=== PATIENT | male | born 1990 | race Caucasian/White ===

== ENCOUNTER 2017-10-07 14:25 | Inpatient (IN) | payer OTHER ==
[~2017-10-07] VITALS: Ht 182.9 cm; Wt 76.1 kg
[2017-10-07 16:00] VITALS: BP 134/73; PULSE 97; TEMP 37.2; O2SAT 99
[2017-10-07] MEDS ORDERED: KETOROLAC TROMETHAMINE 30 MG/ML VIAL IV STA (16:26)
[2017-10-07] MEDS ORDERED: PIPERACILL/TAZOBAC IV 4.5 GM in DEXTROSE 5% 100ML 100 ML IV SCH (16:45)
[2017-10-07] MEDS ORDERED: ONDANSETRON INJ 2 MG/ML 2 ML VIAL IV PRN (17:00)
[2017-10-07] MEDS ORDERED: MAGNESIUM HYDROXIDE SUSP 30 ML UDC PO PRN (17:00)
[2017-10-07 17:06] VITALS: BMI 22.0
[2017-10-07] MEDS: PATIENT'S HEIGHT AND/OR WEIGHT NEEDED SCH ×2 (17:06→17:07)
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
[2017-10-07] MEDS ORDERED: VANCOMYCIN INJ 1,750 MG in SODIUM CHLORIDE 0.9% 500ML 500 ML IV SCH (17:45)
[2017-10-07] MEDS ORDERED: PIPERACILL/TAZOBAC IV 4.5 GM in DEXTROSE 5% 100ML IV ONE (17:45)
[2017-10-07 18:05] VITALS: BP 134/73; PULSE 97; TEMP 37.2; BMI 22.0
[2017-10-07] MEDS: SODIUM CHLORIDE 0.9% 1000ML 1,000 ML IV SCH (18:54)
[2017-10-07] MEDS ORDERED: VANCOMYCIN CONSULT ACTIVE PRN (20:15)
[2017-10-07] MEDS ORDERED: PIPERACILL/TAZOBAC CONSULT ACTIVE PRN (20:15)
[2017-10-07 21:07] VITALS: BP 103/57; PULSE 85; TEMP 36.7; O2SAT 99
[2017-10-07] MEDS: ACETAMINOPHEN 325 MG TAB PO PRN (21:20)
[2017-10-07 23:18] VITALS: BP 103/53; PULSE 74; TEMP 37.1; O2SAT 93
[2017-10-07] MEDS: PIPERACILL/TAZOBAC IV 3.375 GM in DEXTROSE 5% 100ML IV SCH (23:30)
[2017-10-07] MEDS: NICOTINE 21 MG/24 HR TDSY TD PRN (23:34)
[2017-10-08 03:39] VITALS: BP 112/51; PULSE 66; TEMP 36.9; O2SAT 98
[2017-10-08] MEDS: ACETAMINOPHEN 325 MG TAB PO PRN ×3 (03:50→15:44)
[2017-10-08] MEDS ORDERED: VANCOMYCIN INJ 1,000 MG in SODIUM CHLORIDE 0.9% 250ML 250 ML IV SCH (04:00)
[2017-10-08 06:08] LABS: HEMATOCRIT 33.7 % (42-52); MEAN CELL VOLUME 89.2 fL (80-100); MEAN CORPUSCULAR HEMOGLOBIN 29.9 pg (25-34); MEAN CORPUSCULAR HGB CONC 33.5 g/dl (32-36); MEAN PLATELET VOLUME 9.1 fL (7.4-10.4); PLATELET COUNT 210 K/uL (130-400); RED BLOOD COUNT 3.78 M/uL (4.7-6.1); WHITE BLOOD COUNT 10.04 K/uL (4.8-10.8)
[2017-10-08 06:41] LABS: CALCIUM 8.3 mg/dl (8.5-10.1); CREATININE 0.93 mg/dl (0.60-1.40); POTASSIUM 3.7 mmol/L (3.5-5.1)
[2017-10-08 07:15] VITALS: BP 103/42; PULSE 61; TEMP 36.6; O2SAT 98
[2017-10-08] MEDS: METHIMAZOLE 5 MG TAB PO SCH (08:24)
[2017-10-08] MEDS: PIPERACILL/TAZOBAC IV 3.375 GM in DEXTROSE 5% 100ML IV SCH (08:24)
[2017-10-08] MEDS: SODIUM CHLORIDE 0.9% 1000ML 1,000 ML IV SCH ×2 (08:25→14:30)
[2017-10-08 08:58] VITALS: BP 103/42; PULSE 61; TEMP 36.6; O2SAT 98
--- NOTE | 2017-10-08 09:35 | ECHOCARDIOGRAM REPORT ---
*NOTICE TO RECEIVING REPUBLICAN AGENCY This information is strictly Confidential and protected under [place] law. [place] law prohibits you from making any further disclosure of this information unless further disclosure is expressly permitted by the written consent of the person to whom it pertains or is authorized by law. A general authorization for the release of medical or other information is not sufficient for this purpose. Hospital accepts no responsibility if the information is made available to any other person, INCLUDING THE PATIENT. Interpretation Summary * Name: CASANDRA CHAVIRA Study Date: 10/08/2017 06:31 AM BP: 112/51 mmHg * Patient Location: C.2E\S\E206\S\1 HR: 64 * : 1990 (M/d/yyyy) Gender: Male Height: 71 in * Age: 27 yrs Ethnicity: CA Weight: 160 lb * Ordering Physician: Demetria Cowart * Referring Physician: Luis Miguel Harris * Performed By: Keo Whittaker RCS * * Reason For Study: Septic Emboli * BSA: 1.9 m2 * -- Conclusions -- * Left ventricular systolic function is normal. * There was some thickening of the mitral valve in certain views. No definite vegetation. * Right ventricular systolic pressure is normal. * No definite vegetations or source of emboli. If the clinical suspicion for endocarditis is high, transesophageal echocardiogram could be considered. Procedure Details * A complete two-dimensional transthoracic echocardiogram was performed (2D, M-mode, Doppler and color flow Doppler). Left Ventricle * The left ventricle is normal in size. * There is normal left ventricular wall thickness. * Ejection Fraction = 65-70%. * Left ventricular systolic function is normal. * Normal diastolic function * The left ventricular wall motion is normal. Right Ventricle * The right ventricle is normal in size and function. Atria * The left atrial size is normal. * Right atrial size is normal. Mitral Valve * The mitral valve anatomy is normal. * There was some thickening of the mitral valve in certain views. No definite vegetation. * There is no mitral regurgitation noted. Tricuspid Valve * The tricuspid valve anatomy is normal. * There is trace tricuspid regurgitation. * Right ventricular systolic pressure is normal. Aortic Valve * The aortic valve is normal in structure and function. * The aortic valve is trileaflet. * No hemodynamically significant valvular aortic stenosis. * There is no significant aortic regurgitation. Great Vessels * The aortic root is normal size. Pericardium/Pleural * There is no pericardial effusion. MMode 2D Measurements and Calculations IVSd 1.0 cm IVSs 1.2 cm LVIDd 4.8 cm LVIDs 2.9 cm LVPWd 0.85 cm LVPWs 1.4 cm IVS/LVPW 1.2 FS 38.9 % EDV(Teich) 108.2 ml ESV(Teich) 33.3 ml EF(Teich) 69.2 % EDV(cubed) 111.5 ml ESV(cubed) 25.4 ml EF(cubed) 77.2 % % IVS thick 16.3 % % LVPW thick 61.5 % LV mass(C)d 158.5 grams LV mass(C)dI 82.6 grams/m\S\2 LV mass(C)s 119.8 grams LV mass(C)sI 62.4 grams/m\S\2 SV(Teich) 74.8 ml SI(Teich) 39.0 ml/m\S\2 SV(cubed) 86.0 ml SI(cubed) 44.8 ml/m\S\2 Ao root diam 3.4 cm Ao root area 9.1 cm\S\2 ACS 1.7 cm LA dimension 3.3 cm asc Aorta Diam 2.9 cm LA/Ao 0.96 EDV(MOD-sp4) 114.2 ml ESV(MOD-sp4) 32.3 ml EF(MOD-sp4) 71.7 % EDV(MOD-sp2) 159.2 ml ESV(MOD-sp2) 48.8 ml EF(MOD-sp2) 69.4 % SV(MOD-sp4) 82.0 ml SI(MOD-sp4) 42.7 ml/m\S\2 SV(MOD-sp2) 110.4 ml SI(MOD-sp2) 57.6 ml/m\S\2 Doppler Measurements and Calculations MV E max mina 106.8 cm/sec MV A max mina 48.5 cm/sec MV E/A 2.2 MV P1/2t max mina 100.5 cm/sec MV P1/2t 96.2 msec MVA(P1/2t) 2.3 cm\S\2 MV dec slope 306.2 cm/sec\S\2 MV dec time 0.25 sec Ao V2 max 141.9 cm/sec Ao max PG 8.1 mmHg Ao max PG (full) 3.0 mmHg LV V1 max PG 5.0 mmHg LV V1 max 112.2 cm/sec PA V2 max 101.4 cm/sec PA max PG 4.1 mmHg TR max mina 247.5 cm/sec
--- NOTE | 2017-10-08 10:19 | Pharmacy Progress Note ---
Pharmacy Abx Initial Consult Date of Service Oct 08, 2017. Pharmacy Dosing Scope Date of Consult: 10/07/17 Consultation requested by: Dr. Mary Ellen Cowart Pharmacy is consulted to initiate IV VANCOMYCIN and ZOSYN therapy, order appropriate labs and adjust drug dose/frequency. Subjective The patient is a 27 year old male admitted on Oct 07, 2017 at 15:45 for recurrent R elbow abscess + R leg ulcer. Patient was transferred here from [facility] due to SOB and concern for septic emboli on CTA. Objective Height (Feet): 5 Height (Inches): 11.00 Weight (Kilograms): 72.400 Vital Signs (Past 12Hrs) Vital Signs Past 12 Hours Date Time Temp Pulse Resp B/P (MAP) Pulse Ox O2 Delivery O2 Flow Rate FiO2 10/08/17 07:15 36.6 61 18 103/42 (62) 98 Room Air 10/08/17 04:00 Room Air 10/08/17 03:39 36.9 66 19 112/51 (71) 98 Room Air 10/07/17 23:59 Room Air 10/07/17 23:18 37.1 74 18 103/53 (70) 93 Room Air Lab Results (24Hrs) Laboratory Tests (24 Hours) Test 10/08/17 05:46 White Blood Count 10.04 K/uL (4.8-10.8) Micro Results No micro has been collected to date Risk Factors for Resistance * History of infection with a multidrug-resistant organism: h/o MRSA per provider's note * Antimicrobial use within the last 90 days: recent Bactrim use for R elbow abscess Assessment & Plan Assessment * 27 year old male prescribed empiric broad-spectrum abx therapy for skin abscess and concern for septic emboli * Sat well on room air, no tachycardia noted, BP stable * Currently afebrile and no leukocytosis noted * Echo draft: "No definite vegetations or source of emboli. If the clinical suspicion for endocarditis is high, transesophageal echocardiogram could be considered" Plan Vancomycin IV * Loading dose: 1750 mg (24.5 mg/kg) x 1 yesterday * 1000mg x 1 given at 0400 today * Maintenance dose: 1250 mg IV (~17 mg/kg) every 10 hours * Goal trough level for possible endocarditis : 15 to 20 mcg/mL * Trough level ordered for 10/09/17 w 4th maintenance dose * p'kinetic estimates: Vd 0.7L/kg, half-life ~7 hours Piperacillin/tazobactam * 4.5 g bolus administered over 30 minutes, then 3.375 g IV extended infusion every 8 hours for CrCl greater than 20 mL/min * Question whether Zosyn required for empiric therapy of endocarditis as patient does not have clear risk factors for pseudomonas. Often Rocephin is used for empiric gram-negative coverage in the setting of endocarditis and provides good cellulitis coverage. Metronidazole could be added to the Rocephin for anaerobic coverage given multiple abscesses. Pharmacy will continue to follow and will adjust dose/frequency as necessary. Thank you.
[2017-10-08] MEDS: NICOTINE 21 MG/24 HR TDSY TD PRN (10:45)
[2017-10-08 11:13] VITALS: BP 98/53; PULSE 69; TEMP 36.9; O2SAT 96
--- NOTE | 2017-10-08 11:14 | Progress Note ---
Progress Note Date of Service Oct 08, 2017. Progress Note ID Consult Dictated #[id number] A/P: 1. MRSA skin abscesses -Continue vanco, can stop zosyn -Check blood cultures, outpt cutlures reportedly negative -Await CTA results -Can d/c airborne precautions from ID standpoint -Suggest surgical consult, will likely require I&D right hip abscess -Will follow, thank you
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
--- NOTE | 2017-10-08 11:26 | INFECT. DISEASE CONSULTATION ---
DATE OF CONSULTATION: 10/08/2017 REQUESTING PHYSICIAN: Dr. Cowart. HISTORY OF PRESENT ILLNESS: This is a 27-year-old gentleman, who was transferred from [facility] for concern of septic emboli. A CAT scan was done at an outside facility. I do not have records of that to review at this time. His history includes multiple skin disease in the last few weeks. He states that it began with one of his right lower extremity, which opened and drained spontaneously. This resolved. He then developed an abscess on his right forearm, elbow area, which has been drained as an outpatient. He reports that cultures grew MRSA. This was done at an outpatient clinic in the [facility]. He was started on Bactrim and took 2 doses. He then developed an abscess on his right hip, which has not opened and drained. He admits to significant tenderness with this. For that reason, he was sent to the ER and underwent blood testing. He had a positive D-dimer and for that reason, a CAT scan was done to rule out pulmonary embolus. There was reportedly no evidence of PE, but suspicion for septic pulmonary emboli and he was subsequently transferred for higher level of care. He was placed on vancomycin and Zosyn in the Emergency Room. He denies any shortness of breath, cough, chest pain, nausea, vomiting or diarrhea. He states he had blood cultures done on an outpatient basis and those are reportedly negative; however, I do not have documentation of this. No blood cultures were obtained here. His white blood cell count is normal at 10. He did have an echocardiogram, which was negative for vegetation. He has been afebrile since admission. He was placed in airborne precaution as well as contact precaution. He has had no recent travel. He has no sick contacts. He has no history of intravenous drug use. An HIV test was ordered and results of this are pending. He denies any sick contacts. He lives with his fiancee and 2 young daughters. None of his family members know the patient himself has had any history of skin abscess or cellulitis in the past. He works as a structures mechanic and states he does have multiple superficial lacerations, but otherwise reports no risk factors for abscess. All remaining review of systems is reviewed and are unremarkable. PAST MEDICAL HISTORY: Significant for Graves' disease, which has not been treated secondary to insurance issues. PAST SURGICAL HISTORY: Unremarkable. FAMILY HISTORY: Unremarkable. SOCIAL HISTORY: Significant for 1 pack per day smoking. He drinks occasionally. He denies any intravenous or other drug use. ALLERGIES: He has no known drug allergies. MEDICATIONS: Include vancomycin, Zosyn, Tylenol, milk of magnesia, Zofran and nicotine patch. PHYSICAL EXAMINATION: VITAL SIGNS: He is afebrile, pulse 61, respiratory rate 18, blood pressure 103/42, and oxygen saturation is 98% on room air. GENERAL: He is awake, alert and oriented x3. He is in no acute distress. HEENT: Mucous membranes are moist. Extraocular muscles are intact. HEART: Regular. There is no murmur. LUNGS: Clear bilaterally. ABDOMEN: Soft. There is no lower extremity edema. SKIN: Without rash. EXTREMITIES: Examination of the right elbow reveals an open abscess with seropurulent drainage on the dressing. There is surrounding warmth, edema and erythema. This is tender to palpation. Examination of the right hip reveals significant abscess with no drainage at this time. There is significant fluctuance, tenderness, warmth and erythema. LABORATORY STUDIES: CBC today reveals a white blood cell count of 10, hemoglobin 11.3, and platelets are 210. Chemistry panel reveals a sodium of 139, potassium 3.7, chloride 105, bicarbonate 27, BUN 16, creatinine 0.9, and glucose is 90. HIV test is negative. There are no cultures to review. There is no imaging to review. Echocardiogram was done earlier this morning and is negative for vegetation. ASSESSMENT AND PLAN: Multiple skin abscesses with reported methicillin-resistant Staphylococcus aureus. He can remain on vancomycin. Blood cultures will be obtained. Zosyn can likely be discontinued. A CT will need to be reviewed, although he does not clinically present though he has septic emboli. Airborne precautions can be discontinued from an infectious disease standpoint. He likely will need surgical evaluation for I&D of his left hip abscess. We will follow along with you. Thank you for this consultation.
--- NOTE | 2017-10-08 13:48 | Medical Student: [facility] ---
Med Student Progress Note Date of Service Oct 08, 2017. Subjective Pt evaluation today including: conversation w/ patient, physical exam, chart review, lab review, review of studies, review of inpatient medication list PO Intake: Good Voiding: no voiding problems Pt is a 25 yo M who presents for septic embolus. He was admitted on 10/07 after being transferred from [facility]. Currently pt is doing well. Only complains of minor lower abdominal pain bilaterally (but L>R) that started 1 day ago. He notes the pain is worst when it moves (rated as "very severe") and he doesn't notice it at all when he is still. Review of Systems Constitutional: + chills, No fever Respiratory: No cough, No sputum, No wheezing, No shortness of breath Cardiac: No chest pain, No palpitations Abdomen: + pain, No nausea, No vomiting, No diarrhea, No constipation Male : No dysuria, No urinary frequency, No incontinence Objective Vital Signs Date Time Temp Pulse Resp B/P (MAP) Pulse Ox O2 Delivery O2 Flow Rate FiO2 10/08/17 08:00 Room Air 10/08/17 07:15 36.6 61 18 103/42 (62) 98 Room Air 10/08/17 04:00 Room Air 10/08/17 03:39 36.9 66 19 112/51 (71) 98 Room Air 10/07/17 23:59 Room Air 10/07/17 23:18 37.1 74 18 103/53 (70) 93 Room Air 10/07/17 21:07 36.7 85 22 103/57 (72) 99 Room Air 10/07/17 18:05 37.2 97 18 134/73 Room Air 93.0 10/07/17 16:00 37.2 97 18 134/73 (93) 99 Room Air Physical Exam General Appearance: WD/WN, no apparent distress Neck: no JVD, trachea midline Respiratory/Chest: chest non-tender, lungs clear, normal breath sounds, no respiratory distress Cardiovascular: regular rate, rhythm, no edema, no gallop, no murmur Abdomen: normal bowel sounds, soft, no organomegaly, + tenderness (LLQ and RLQ) Extremities: no pedal edema, no calf tenderness Neurologic/Psychiatric: alert, normal mood/affect, oriented x 3 Skin: normal color, warm/dry, no rash Laboratory Results Last 24 Hours Test 10/08/17 05:46 White Blood Count 10.04 K/uL Red Blood Count 3.78 M/uL Hemoglobin 11.3 g/dL Hematocrit 33.7 % Mean Corpuscular Volume 89.2 fL Mean Corpuscular Hemoglobin 29.9 pg Mean Corpuscular Hemoglobin Concent 33.5 g/dl RDW Standard Deviation 44.6 fL RDW Coefficient of Variation 13.6 % Platelet Count 210 K/uL Mean Platelet Volume 9.1 fL Sodium Level 139 mmol/L Potassium Level 3.7 mmol/L Chloride Level 105 mmol/L Carbon Dioxide Level 27 mmol/L Anion Gap 6.0 mmol/L Blood Urea Nitrogen 16 mg/dl Creatinine 0.93 mg/dl Est Creatinine Clear Calc Drug Dose 118.4 ml/min Estimated GFR () 128.1 Estimated GFR (Non- 110.5 BUN/Creatinine Ratio 17.0 Random Glucose 90 mg/dl Calcium Level 8.3 mg/dl HIV (1&2) Ab and P24 Ag, 4th Gener NEG Assessment and Plan Assessment and Plan: Pt is a 27 yo who presents with healing abscesses 2/2 septic emboli transferred to [facility] from [facility] on 10/07. Known +MRSA. Imaging done at [facility]: CTA showed multifocal nodular airspace disease in lungs bilaterally - concerning for septic emboli CT abdomen and pelvis showed soft tissue stranding of left psoas muscle without any collection of drainable fluid. HIV test negative 1. Septic Emboli and abscesses a. ID consult -want to continue Vancomycin but can stop Zosyn -Pt can be taken off airborne isolation -Hip abscess will likely require I&D, will consult surgery -Blood cultures collected here b. TTE was normal, consider f/u with ALEJANDRA 2. Graves Disease a. Continue Methimazole 30mg
[2017-10-08] MEDS: VANCOMYCIN INJ 1,250 MG in SODIUM CHLORIDE 0.9% 250ML 250 ML IV SCH ×2 (14:28→23:56)
--- NOTE | 2017-10-08 18:11 | Progress Note ---
Subjective Date of Service: Oct 08, 2017. Subjective this pt is feeling better than past few days, has pain at skin abscess sites, mostly worse at right hip area. pt Related some dental distress about one month ago from a chronically decayed tooth, ? if portal of entry for possible bacteremia Review of Systems Constitutional: No fever, No chills Respiratory: No cough, No shortness of breath, No dyspnea on exertion Cardiac: No chest pain, No edema, No claudication Abdomen: No pain, No nausea, No vomiting, No diarrhea Musculoskeletal: + muscle pain, No joint pain Skin: + problem reported (open areas to right elbow and right hip area) Objective Vital Signs Date Time Temp Pulse Resp B/P (MAP) Pulse Ox O2 Delivery O2 Flow Rate FiO2 10/08/17 07:15 36.6 61 18 103/42 (62) 98 Room Air 10/08/17 04:00 Room Air 10/08/17 03:39 36.9 66 19 112/51 (71) 98 Room Air 10/07/17 23:59 Room Air 10/07/17 23:18 37.1 74 18 103/53 (70) 93 Room Air 10/07/17 21:07 36.7 85 22 103/57 (72) 99 Room Air 10/07/17 18:05 37.2 97 18 134/73 Room Air 93.0 10/07/17 16:00 37.2 97 18 134/73 (93) 99 Room Air Physical Exam General Appearance: + mild distress, + thin Eyes: PERRL, EOMI Neck: supple, thyroid normal Respiratory/Chest: chest non-tender, lungs clear, normal breath sounds Cardiovascular: regular rate, rhythm, no murmur Abdomen: normal bowel sounds, soft, + tenderness Extremities: no pedal edema, no calf tenderness Skin: + pertinent finding (2 quarter sized abscess seen as described) Laboratory Results Last 24 Hours Test 10/08/17 05:46 White Blood Count 10.04 K/uL Red Blood Count 3.78 M/uL Hemoglobin 11.3 g/dL Hematocrit 33.7 % Mean Corpuscular Volume 89.2 fL Mean Corpuscular Hemoglobin 29.9 pg Mean Corpuscular Hemoglobin Concent 33.5 g/dl RDW Standard Deviation 44.6 fL RDW Coefficient of Variation 13.6 % Platelet Count 210 K/uL Mean Platelet Volume 9.1 fL Sodium Level 139 mmol/L Potassium Level 3.7 mmol/L Chloride Level 105 mmol/L Carbon Dioxide Level 27 mmol/L Anion Gap 6.0 mmol/L Blood Urea Nitrogen 16 mg/dl Creatinine 0.93 mg/dl Est Creatinine Clear Calc Drug Dose 118.4 ml/min Estimated GFR () 128.1 Estimated GFR (Non- 110.5 BUN/Creatinine Ratio 17.0 Random Glucose 90 mg/dl Calcium Level 8.3 mg/dl HIV (1&2) Ab and P24 Ag, 4th Gener NEG Assessment and Plan 27 y/o M who was transferred from [facility] on 10/07 for concern for septic emboli, no defined source at this time Septic emboli/skin abscesses: Wound cx done at OSH reportedly + for MRSA Continue with vanco, zosyn dropped by ID, TTE neg will pursue ALEJANDRA CTA and CTAP awaiting radiology input, but initially noted as above Blood cx done at OSH neg of prelim Renal US neg at OSH HIV pending pain control with toradol Graves disease: had been tx prior, but has been untx x9 months due to insurance access States prior dose was methimazole 30mg daily TSH is depressed Tobacco abuse: declines patch, ordered PRN, counselling given for cessation Ambulation for DVT proph CM c/s for assistance with prescriptions and MA
[2017-10-08 19:02] VITALS: BP 102/47; PULSE 105; TEMP 36.7; O2SAT 97
[2017-10-08] MEDS: KETOROLAC TROMETHAMINE 30 MG/ML VIAL IV PRN (21:21)
[2017-10-08 23:40] VITALS: BP 107/39; PULSE 77; TEMP 37; O2SAT 97
[2017-10-09] VITALS (16 sets, daily range): BP systolic 86–144; BP diastolic 37–94; PULSE 58–122; TEMP 36.5–37.2; O2SAT 96–100; Ht 182.9 cm; Wt 76.1 kg
[2017-10-09] MEDS: KETOROLAC TROMETHAMINE 30 MG/ML VIAL IV PRN ×3 (04:18→20:48)
[2017-10-09] MEDS: SODIUM CHLORIDE 0.9% 1000ML 1,000 ML IV SCH (07:33)
[2017-10-09] MEDS ORDERED: BENZOCAIN/TETRACA/BUTAM SPRAY 200 APPLN/20 GM SPRY ONE (08:06)
[2017-10-09] MEDS ORDERED: FENTANYL CITRATE INJ 50 MCG/1 ML 2 ML VIAL ONE ×2 (08:06→08:33)
[2017-10-09] MEDS ORDERED: CANNULA ONE ×2 (08:07)
[2017-10-09] MEDS ORDERED: MIDAZOLAM HCL 1 MG/ML 2ML VIAL ONE (08:07)
[2017-10-09] MEDS ORDERED: LIDOCAINE HCL 2% VISC SOLN 20 ML UDC ONE (08:27)
[2017-10-09] MEDS ORDERED: VANCOMYCIN TROUGH ONE (09:30)
[2017-10-09] MEDS: VANCOMYCIN INJ 1,250 MG in SODIUM CHLORIDE 0.9% 250ML 250 ML IV SCH (10:35)
[2017-10-09] MEDS: NICOTINE 21 MG/24 HR TDSY TD PRN (10:37)
[2017-10-09] MEDS: METHIMAZOLE 5 MG TAB PO SCH (10:37)
[2017-10-09 10:52] LABS: CREATININE 0.8 mg/dl (0.60-1.40)
--- NOTE | 2017-10-09 12:22 | Pharmacy Progress Note ---
Pharmacy Abx Dose Short Note Date of Service Oct 09, 2017. Assessment & Plan Assessment * 27 year old male receiving iv VANCOMYCIN for treatment of R elbow and R hip abscess, r/o septic emboli * Zosyn discontinued yesterday by ID consult * Day # 3 of antimicrobial therapy * Risk factors for resistant organism: * History of infection with a multidrug-resistant organism: h/o MRSA per provider's note * Antimicrobial use within the last 90 days: recent Bactrim use for R elbow abscess * Blood Cx's from [facility] reported to be growing MRSA per review or nursing notes * Echo report: "No definite vegetations or source of emboli. If the clinical suspicion for endocarditis is high, transesophageal echocardiogram could be considered" Patient to have ALEJANDRA today * Currently afebrile, no leukocytosis noted on yesterday's labs * Sat well on room air * Renal fxn appears stable based upon labs Plan Vancomycin * Trough level of 10.8 mcg/mL is subtherapeutic * Change to 1750 mg (~23.6mg/kg) IV every 10 hours and begin first dose early * Goal trough level for bacteremia, possible endocarditis : 15 to 20 mcg/mL * Trough level ordered for: 10/10/17 w/ 3rd dose of new regimen * If we have difficulty achieving therapeutic trough conc due to rapid clearance , we may need to consider change to daptomycin...which will likely be the case if he requires 14 days minimum treatment for MRSA bacteremia. Pharmacy will continue to follow and will adjust dose/frequency as necessary. Thank you.
--- NOTE | 2017-10-09 13:26 | TEE ---
*NOTICE TO RECEIVING [employer]PUBL[employer] AG[employer]Y This information is strictly Confidential and protected under [place] law. [place] law prohibits you from making any further disclosure of this information unless further disclosure is expressly permitted by the written consent of the person to whom it pertains or is authorized by law. A general authorization for the release of medical or other information is not sufficient for this purpose. Hospital accepts no responsibility if the information is made available to any other person, INCLUDING THE PATIENT. Interpretation Summary * Name: CASANDRA CHAVIRA Study Date: 10/09/2017 09:17 AM * Patient Location: .2E\S\E206\S\1 HR: 127 * : 1990 (M/d/yyyy) Gender: Male Height: 71 in * Age: 27 yrs Ethnicity: [place] Weight: 159 lb * Ordering Physician: Jitendra Galarza * Referring Physician: Luis Miguel Harris * Performed By: Keo Whittaker RCS * * Reason For Study: Eval for Endocarditis * BSA: 1.9 m2 * -- Conclusions -- * No vegetations or evidence of endocarditis on the aortic or mitral valve. Procedure Details * ALEJANDRA Probe #3 utilized for procedure. Procedure Start Time: 0818. Procedure Stop Time: 08. * The study was performed in Cardiopulmonary Department. * Time out was conducted by the physician, nurse, and experimental technician with positive identification of patient and procedure. * Informed consent for Transesophageal Echocardiogram was obtained prior to the procedure. * An intravenous line was placed. A topical anesthetic agent was used for oropharangeal anesthesia. A bite block was inserted. * The patient's vital signs, including blood pressure, heart rate, pulse oximetry and cardiac rhythm were monitored throughout the procedure . * Fentanyl 150 mcg was administered for procedural sedation. * Midazolam 6 mg administered for sedation. * A multifrequency, multiplane transesopheageal echocardiographic endoscope was inserted and manipulated in the standard fashion to achieve multiplane views. * The transesophageal probe was passed without difficulty. * Limited views were obtained. * The patient tolerated the procedure well without evidence of orophangeal or esophageal trauma. * Limited views were obtained as the patient did not tolerate passage of the probe well * A 2D transesophageal echocardiogram was performed. * Limited views were obtained. Left Ventricle * The left ventricle is grossly normal size. * Left ventricular systolic function is normal. Atria * No thrombus is detected in the left atrial appendage. Mitral Valve * The mitral valve anatomy is normal. Aortic Valve * The aortic valve is normal in structure and function. Pericardium * There is no pericardial effusion.
[2017-10-09] MEDS ORDERED: OPTIRAY 320 IV PRN (13:30)
--- NOTE | 2017-10-09 14:12 | Medical Student: [facility] ---
Med Student Progress Note Date of Service Oct 09, 2017. Subjective Pt evaluation today including: conversation w/ patient, conversation w/ family , physical exam, chart review, lab review, review of studies, conversation w/ clinical services consultant, review of inpatient medication list PO Intake: Good Voiding: no voiding problems No acute events overnight. Pt is doing well and is in less pain overall. Ambulates regularly Review of Systems Constitutional: No fever, No chills Respiratory: No cough, No sputum, No wheezing, No shortness of breath Cardiac: No chest pain, No palpitations Abdomen: No nausea, No vomiting, No diarrhea, No constipation Male : No dysuria, No urinary frequency, No incontinence Neurologic: No weakness, No numbness/tingling Objective Vital Signs Date Time Temp Pulse Resp B/P (MAP) Pulse Ox O2 Delivery O2 Flow Rate FiO2 10/09/17 12:00 Room Air 10/09/17 11:29 36.5 101 18 90/54 (66) 98 Room Air 10/09/17 09:28 80 14 108/42 (64) 98 Room Air 10/09/17 09:19 80 16 121/42 (68) 97 Room Air 10/09/17 09:13 90 16 102/40 (60) 96 Room Air 10/09/17 09:07 87 18 92/53 (66) 96 Room Air 10/09/17 08:57 91 20 115/37 (63) 95 Room Air 10/09/17 08:48 115 22 121/38 (65) 97 Room Air 10/09/17 08:45 121 28 112/37 100 2 10/09/17 08:40 81 22 112/37 100 2 10/09/17 08:35 84 12 122/43 100 2 10/09/17 08:33 122 28 144/55 99 2 10/09/17 08:30 81 17 121/43 100 2 10/09/17 08:25 85 18 123/46 100 2 10/09/17 08:20 82 21 129/47 100 2 10/09/17 08:19 36.7 98 18 136/94 (108) 96 2.0 10/09/17 08:18 92 16 140/47 100 2 10/09/17 08:00 Room Air 10/09/17 07:59 72 16 144/58 100 Nasal Cannula 2 10/09/17 06:28 36.5 58 16 105/54 98 Room Air 93.0 10/09/17 04:07 36.5 58 16 105/54 (71) 98 Room Air 10/09/17 04:00 Room Air 10/09/17 00:01 Room Air 10/08/17 23:40 37.0 77 20 107/39 (61) 97 Room Air 10/08/17 20:00 Room Air 10/08/17 19:02 36.7 105 18 102/47 (65) 97 Room Air 10/08/17 16:00 Room Air Physical Exam General Appearance: WD/WN, no apparent distress Neck: no JVD, trachea midline Respiratory/Chest: chest non-tender, lungs clear, normal breath sounds, no respiratory distress Cardiovascular: regular rate, rhythm, no edema, no gallop, no JVD, no murmur Abdomen: normal bowel sounds, soft, no organomegaly Neurologic/Psychiatric: oriented x 3 Skin: normal color, warm/dry Laboratory Results Last 24 Hours Test 10/09/17 09:46 Creatinine 0.80 mg/dl Est Creatinine Clear Calc Drug Dose 142.6 ml/min Estimated GFR () 139.9 Estimated GFR (Non- 120.7 Vancomycin Level Trough 10.8 mcg/ml Assessment and Plan Assessment and Plan: Pt is a 27 yo who presents with healing abscesses 2/2 septic emboli transferred to [facility] from [facility] on 10/07. Known +MRSA.Continues to remain afebrile without elevated WBCs. Imaging done at [facility]: CTA showed multifocal nodular airspace disease in lungs bilaterally - concerning for septic emboli CT abdomen and pelvis showed soft tissue stranding of left psoas muscle without any collection of drainable fluid. HIV test negative 09/08 : ALEJANDRA was negative for mitral/aortic valve abnormalities or vegetations. BCx done at [facility] positive for MRSA. 1. Septic Emboli and abscesses a. Ordered CT chest and pelvis - if lungs are not significantly worse from CTA in [facility] and no psoas abscess present, can likely discharge on Bactrim PO 2. Graves Disease a. Continue Methimazole 30mg
--- NOTE | 2017-10-09 15:06 | Progress Note ---
Subjective Date of Service: Oct 09, 2017. Subjective blood cultures pending, tolerating abx, echo negative. remains afebrile. previous cultures from wound with MRSA, reported negative blood cultures. unable to view ct chest from OSH. No overnight events. Objective Vital Signs Date Time Temp Pulse Resp B/P (MAP) Pulse Ox O2 Delivery O2 Flow Rate FiO2 10/09/17 12:00 Room Air 10/09/17 11:29 36.5 101 18 90/54 (66) 98 Room Air 10/09/17 09:28 80 14 108/42 (64) 98 Room Air 10/09/17 09:19 80 16 121/42 (68) 97 Room Air 10/09/17 09:13 90 16 102/40 (60) 96 Room Air 10/09/17 09:07 87 18 92/53 (66) 96 Room Air 10/09/17 08:57 91 20 115/37 (63) 95 Room Air 10/09/17 08:48 115 22 121/38 (65) 97 Room Air 10/09/17 08:45 121 28 112/37 100 2 10/09/17 08:40 81 22 112/37 100 2 10/09/17 08:35 84 12 122/43 100 2 10/09/17 08:33 122 28 144/55 99 2 10/09/17 08:30 81 17 121/43 100 2 10/09/17 08:25 85 18 123/46 100 2 10/09/17 08:20 82 21 129/47 100 2 10/09/17 08:19 36.7 98 18 136/94 (108) 96 2.0 10/09/17 08:18 92 16 140/47 100 2 10/09/17 08:00 Room Air 10/09/17 07:59 72 16 144/58 100 Nasal Cannula 2 10/09/17 06:28 36.5 58 16 105/54 98 Room Air 93.0 10/09/17 04:07 36.5 58 16 105/54 (71) 98 Room Air 10/09/17 04:00 Room Air 10/09/17 00:01 Room Air 10/08/17 23:40 37.0 77 20 107/39 (61) 97 Room Air 10/08/17 20:00 Room Air 10/08/17 19:02 36.7 105 18 102/47 (65) 97 Room Air 10/08/17 16:00 Room Air Laboratory Results Last 24 Hours Test 10/09/17 09:46 Creatinine 0.80 mg/dl Est Creatinine Clear Calc Drug Dose 142.6 ml/min Estimated GFR () 139.9 Estimated GFR (Non- 120.7 Vancomycin Level Trough 10.8 mcg/ml Assessment and Plan (1) Abscess Assessment & Plan: continue IV abx for now, spoke with primary, would expect pt to have pulm symptoms, toxic appearing if having systemic infection. To date , blood cultures reported negative, echo negative. will repeat ct chest, if continued evidence of septic emboli would suggest continue IV abx, if ct negative for embolic disease and ALEJANDRA and blood cultures negative, could likely continue with po abx. will follow results.
--- NOTE | 2017-10-09 15:17 | DIAGNOSTIC IMAGING REPORT ---
CHEST CT WITH CONTRAST CT DOSE: HISTORY: pt with septic emboli concern for cavitary lung lesion TECHNIQUE: Multiaxial CT images of the chest were performed following the intravenous administration of contrast. A dose lowering technique was utilized adhering to the principles of ALARA. COMPARISON: Outside hospital chest CTA 10/06/2017. FINDINGS: No pneumothorax. The central airways are patent. Subtle tree-in-bud nodular opacities seen throughout the lungs. No change in the 8 mm nodule within the superior segment of the right lower lobe. There is also a focal nodular opacities within the base of the right lower lobe which measures 2.5 cm. This appears to demonstrate central process. Trace bilateral pleural effusions have developed. There are 3 additional subcentimeter nodules within the right lung. These are new from the prior study. Additional subcentimeter nodular densities within the left upper lobe on image 113 and the left lower lobe on image 124 remain unchanged. Old, healed left clavicle fracture. No suspicious lytic or blastic osseous lesions. Mild mediastinal and right hilar lymphadenopathy, unchanged. The central pulmonary arteries appear patent. The heart is normal in size. Normal caliber thoracic aorta. Please refer to the same day abdomen and pelvis CT for further evaluation of the upper abdominal structures. IMPRESSION: 1. Focal 2.5 cm nodular opacity within the base of the right lower lobe which demonstrate central necrosis. There is also increase in number of the scattered subcentimeter nodular densities within the right lung. There is also subtle tree-in-bud nodular opacity seen throughout the lungs. These findings are nonspecific but favor an atypical infection. This could be a result of tuberculosis in the appropriate clinical setting. Septic pulmonary emboli could also have a similar appearance. 2. Mild mediastinal and right hilar lymphadenopathy. This is likely reactive. However, follow-up chest CT is recommended to ensure resolution. 3. Interval development of trace bilateral pleural effusions. Electronically signed by: Rivas Lehman M.D. 10/09/2017 3:16 PM Dictated Date/Time: 10/09/2017 3:08 PM
--- NOTE | 2017-10-09 15:28 | DIAGNOSTIC IMAGING REPORT ---
CT SCAN OF THE ABDOMEN AND PELVIS WITH IV CONTRAST CLINICAL HISTORY: Septic emboli. COMPARISON STUDY: Abdominal CT dated 10/06/2017. TECHNIQUE: Following the IV administration of 94 cc of Optiray 320, CT scan of the abdomen and pelvis is performed from the lung bases to the proximal femora. Images are reviewed in the axial, sagittal, and coronal planes. IV contrast was administered without complication. A dose lowering technique was utilized adhering to the principles of ALARA. CT DOSE: 514.23 mGy.cm FINDINGS: Lung bases: The heart is normal in size and without pericardial effusion. There are trace pleural effusions with dependent atelectasis. Consolidation with a tiny fluid collection is suggested at the right lung base on image #38. Numerous subtle tree-in-bud opacities are present at both lung bases. See report of chest CT performed concurrently for detailed intrathoracic findings. Liver: The contrast-enhanced liver is enlarged, measuring 22.6 cm in length. The liver is normal in contour and attenuation. There is no intrahepatic biliary ductal dilatation. The hepatic veins and portal veins are patent. Gallbladder: Contracted. Spleen: Normal in size and attenuation. Pancreas: Unremarkable. Adrenal glands: Unremarkable. Kidneys: The contrast enhanced kidneys are normal in size and without hydronephrosis. The kidneys enhance symmetrically. Abdominal vasculature: The abdominal aorta is normal in course and caliber. Bowel: Moderate fecal retention is observed. No bowel obstruction is seen. The appendix is well-visualized and normal. Peritoneum/retroperitoneum: There is no intraperitoneal free air or abdominal ascites. There is slightly asymmetric enlargement of the left psoas muscle as compared to the right. Mild inflammatory stranding seen around the left psoas muscle. There is the suggestion of a low-attenuation collection within the left psoas muscle on image #266 which measures up to 2.5 cm. Lymphadenopathy: None. Pelvic viscera: The bladder, prostate, and seminal vesicles are normal as visualized. Skeletal structures: No lytic or blastic lesions are seen. IMPRESSION: 1. There is mildly asymmetric enlargement of the left psoas muscle as compared to the right with surrounding inflammatory stranding. A subtle low-attenuation fluid collection is suggested within the left psoas muscle but is difficult to confirm. This likely represents a psoas muscle abscess. Consider MRI with contrast for confirmation. 2. There is a small region of consolidation with central necrosis/fluid at the right lung base, concerning for septic emboli/small pulmonary abscess. Additional tree-in-bud opacities are present both lung bases. See report of chest CT performed concurrently for detailed intrathoracic findings. 3. Trace pleural effusions. 4. Hepatomegaly. 5. Additional findings as above. Electronically signed by: Bib Roberto M.D. 10/09/2017 3:27 PM Dictated Date/Time: 10/09/2017 3:10 PM
--- NOTE | 2017-10-09 16:59 | Progress Note ---
Subjective Date of Service: Oct 09, 2017. Subjective pt himself is with complaint of left back pain consistent with the psoas inflamation seen on CT, the necrotic lung lesion is not prompting quanaferon gold testing which will be sent 10/10 he has pain at the right ASIS area skin abscess which drained spontaneously 10/09 Review of Systems Constitutional: + weakness, + fatigue, No fever, No chills Respiratory: No cough, No shortness of breath, No dyspnea on exertion Cardiac: No chest pain, No orthopnea, No edema Abdomen: No pain, No nausea, No vomiting, No diarrhea Musculoskeletal: + joint pain, + muscle pain, + swelling Skin: + new/changing skin lesions Objective Vital Signs Date Time Temp Pulse Resp B/P (MAP) Pulse Ox O2 Delivery O2 Flow Rate FiO2 10/09/17 15:53 36.8 73 16 107/49 (68) 97 Room Air 10/09/17 12:00 Room Air 10/09/17 11:29 36.5 101 18 90/54 (66) 98 Room Air 10/09/17 09:28 80 14 108/42 (64) 98 Room Air 10/09/17 09:19 80 16 121/42 (68) 97 Room Air 10/09/17 09:13 90 16 102/40 (60) 96 Room Air 10/09/17 09:07 87 18 92/53 (66) 96 Room Air 10/09/17 08:57 91 20 115/37 (63) 95 Room Air 10/09/17 08:48 115 22 121/38 (65) 97 Room Air 10/09/17 08:45 121 28 112/37 100 2 10/09/17 08:40 81 22 112/37 100 2 10/09/17 08:35 84 12 122/43 100 2 10/09/17 08:33 122 28 144/55 99 2 10/09/17 08:30 81 17 121/43 100 2 10/09/17 08:25 85 18 123/46 100 2 10/09/17 08:20 82 21 129/47 100 2 10/09/17 08:19 36.7 98 18 136/94 (108) 96 2.0 10/09/17 08:18 92 16 140/47 100 2 10/09/17 08:00 Room Air 11/9/17 07:59 72 16 144/58 100 Nasal Cannula 2 10/09/17 06:28 36.5 58 16 105/54 98 Room Air 93.0 10/09/17 04:07 36.5 58 16 105/54 (71) 98 Room Air 10/09/17 04:00 Room Air 10/09/17 00:01 Room Air 10/08/17 23:40 37.0 77 20 107/39 (61) 97 Room Air 10/08/17 20:00 Room Air 10/08/17 19:02 36.7 105 18 102/47 (65) 97 Room Air Physical Exam General Appearance: WD/WN, + mild distress, + thin Eyes: PERRL, EOMI Respiratory/Chest: chest non-tender, lungs clear, normal breath sounds Cardiovascular: regular rate, rhythm, no murmur Abdomen: normal bowel sounds, non tender, soft Extremities: no pedal edema, no calf tenderness Neurologic/Psychiatric: alert, oriented x 3 Skin: + pertinent finding (right hip drained 10 ml of thick white liquid, wound dressed but liquid was external and not sterile to culture) Laboratory Results Last 24 Hours Test 10/09/17 09:46 Creatinine 0.80 mg/dl Est Creatinine Clear Calc Drug Dose 142.6 ml/min Estimated GFR () 139.9 Estimated GFR (Non- 120.7 Vancomycin Level Trough 10.8 mcg/ml Assessment and Plan 27 y/o M who was transferred from [facility] on 10/07 for concern for septic emboli, no defined source at this time. Septic emboli/skin abscesses: Wound and blood cx done at OSH reportedly + for MRSA Continue with vanco, zosyn dropped by ID, TTE and subsequent ALEJANDRA negative for valvular vegetations Renal US neg at OSH HIV negative pain control with toradol ID requested repeat CT to evaluate lung and psoas given back pain, if improved would consider po meds and shorter course since clinically improved, but it shows persistent necrotic lung lesions, and left psoas inflammation, now ID will need to pursue likley minimum of 4 weeks of IV antibiotics and will send quantiferon gold, does not feel we need respiratory isolation as pt has no significant pulmonary symptoms and lesions in lung could be abscess Graves disease: had been tx prior, but has been untx x9 months due to insurance access States prior dose was methimazole 30mg daily, still has no insurance Tobacco abuse: declines patch, ordered PRN, counselling given for cessation Ambulation for DVT proph CM c/s for assistance with prescriptions and MA
[2017-10-09] MEDS: DEXTROSE 5% IV SCH (17:56)
[2017-10-09] MEDS: VANCOMYCIN IV SCH (17:56)
[2017-10-09] MEDS ORDERED: VANCOMYCIN IV SCH (20:00)
[2017-10-09] MEDS ORDERED: DEXTROSE 5% IV SCH (20:00)
[2017-10-10] VITALS (8 sets, daily range): BP systolic 98–115; BP diastolic 56–63; PULSE 63–73; TEMP 36.5–36.7; O2SAT 95–98
[2017-10-10] MEDS: ACETAMINOPHEN 325 MG TAB PO PRN (01:46)
[2017-10-10] MEDS: SODIUM CHLORIDE 0.9% 1000ML 1,000 ML IV SCH (01:46)
[2017-10-10] MEDS: DEXTROSE 5% IV SCH ×2 (03:38→15:05)
[2017-10-10] MEDS: KETOROLAC TROMETHAMINE 30 MG/ML VIAL IV PRN ×2 (03:38→13:25)
[2017-10-10] MEDS: VANCOMYCIN IV SCH ×2 (03:38→15:05)
[2017-10-10 07:14] LABS: CREATININE 0.67 mg/dl (0.60-1.40)
[2017-10-10] MEDS: METHIMAZOLE 5 MG TAB PO SCH (09:01)
--- NOTE | 2017-10-10 11:05 | Progress Note ---
Subjective Date of Service: Oct 10, 2017. Subjective Pt evaluation today including: conversation w/ patient, conversation w/ family , physical exam, chart review, lab review pt seen in followup, c/o back pain b/l. no f/c. blood cultures remain negative. on emperic vanco, tolerating well. CT chest and abd done yesterday, 2.5cm lesion RLL, also ? L psoas. Has no insurance. no TB risk factors found, IGRA pending, HIV negative, denies h/o IVDA. had right hip abscess, drained at bedside yesterday, feeling better today. no continued drainage. less pain. Remaining ros reviewed and are negative. Objective Vital Signs Date Time Temp Pulse Resp B/P (MAP) Pulse Ox O2 Delivery O2 Flow Rate FiO2 10/10/17 07:55 36.6 72 20 106/63 (77) 95 10/10/17 04:05 36.6 66 14 98/61 (73) 96 Room Air 10/10/17 04:00 Room Air 10/10/17 00:01 Room Air 10/09/17 23:27 36.7 72 18 86/46 (59) 97 Room Air 93/48 (63) 10/09/17 20:00 Room Air 10/09/17 19:36 37.2 81 18 100/48 (65) 97 Room Air 10/09/17 16:00 Room Air 10/09/17 15:53 36.8 73 16 107/49 (68) 97 Room Air 10/09/17 12:00 Room Air 10/09/17 11:29 36.5 101 18 90/54 (66) 98 Room Air Physical Exam General Appearance: WD/WN, no apparent distress Eyes: normal inspection, EOMI ENT: pharynx normal Neck: supple Respiratory/Chest: lungs clear, normal breath sounds, no respiratory distress Cardiovascular: regular rate, rhythm, no edema, no murmur Abdomen: non tender, soft Extremities: non-tender, normal inspection, no pedal edema Neurologic/Psychiatric: alert, oriented x 3 Skin: normal color, no rash Comments: right hip dressing intact, no surrounding erythema, edema, warmth, induration, much improved. Laboratory Results Item Value Date Time Blood Culture - Preliminary Resulted 10/08/17 1135 Blood NO GROWTH TO DATE. Blood Culture - Preliminary Resulted 10/08/17 1138 Blood NO GROWTH TO DATE. Last 24 Hours Test 10/10/17 06:33 Creatinine 0.67 mg/dl Est Creatinine Clear Calc Drug Dose 174.2 ml/min Estimated GFR () > 150.0 Estimated GFR (Non- 129.8 Assessment and Plan (1) Septic embolism Assessment & Plan: will continue vanco, blood cultures negative to date. If able to have outpt IV abx, would suggest picc line if cultures negative, and six weeks IV vanco. will need weekly cbc,cmp,esr, vanco trough (15-20). Alternative would be po zyvox however, unsure of co pay with no insurance. (2) Abscess
[2017-10-10] MEDS ORDERED: VANCOMYCIN TROUGH ONE ×2 (13:30→15:30)
--- NOTE | 2017-10-10 14:15 | Pulmonology Progress Note ---
Pulmonary Progress Note Date of Service Oct 10, 2017. Attending Dr. Cuevas Subjective Patient appears to be much improved today. He complains of no shortness of breath, cough, chest pain, chest tightness, hemoptysis, or dyspnea on exertion. Patient's blood cultures are showing no growth to date. Repeat lab work was reviewed. His creatinine was 0.67 today. Toxicology screen is pending. HIV screen negative. QuantiFERON pending. The patient did a repeat CT scan of the chest. Radiology noted a 2.5 cm nodular opacity within the base the right lower lobe which demonstrates central necrosis. Scattered subcentimeter nodular densities within the right lung were also noted. Tree-in-bud nodular was seen throughout the lungs. Atypical infection was favored, pulmonary emboli could similar appearance as well. Mild mediastinal and right hilar lymphadenopathy was also noted. CT of the abdomen/pelvis was also completed. Radiology noted enlargement of the left psoas muscle as compared to the right with surrounding inflammatory stranding, and hepatomegaly was also noted. CT scan of the chest was viewed by me today, and was also reviewed with Dr. Erika Cuevas. Patient continues on IV vancomycin. Infectious Disease recommending 6 weeks of IV antibiotic therapy pending toxicology screen. Discussed patient briefly with Dr. Galarza yesterday as well. Reassessed patient with Dr. Cuevas today. Objective Vital signs reviewed: Afebrile HR 73 RR 18 BP 98/56 SaO2 97% room air General: Patient is awake, alert, cooperative, and in no acute distress. Well developed. Well-nourished. Head: Normocephalic, Atraumatic. ENT: PERRLA, No discharge, EOMI, Sclera normal Neck: Normal ROM. Trachea midline. No stridor Respiratory: No adventitious sounds heard on exam. Normal breath sounds. No respiratory distress. No accessory muscle use. Cardiovascular: Regular rate and rhythm. Extremities: No edema, cyanosis. Normal ROM Neuro: Alert, Oriented x 3. CN II-XII grossly intact. Sensation and motor function grossly intact. Psych: Mood and affect are normal. Skin: Bandage on right forearm with mild drainage and also bandage on right pelvis where lesion I&D was completed. Assessment & Plan MRSA Skin abscesses ?Small focus of pneumonia versus septic emboli Patient currently on IV Vancomycin and is overall improving. Cultures showing no growth today. Repeat CT scan of the chest and abdomen reviewed. Note septic emboli versus atypical lung infection. Patient no real risk factors for tuberculosis at this time. Infectious Disease is following and patient on IV vancomycin. Likely will discharge this patient on continued antibiotic therapy for concerns septic emboli. Would recommend consideration of addition either azithromycin, levofloxacin or doxycycline for possible atypical community- acquired pneumonia. Recommend following Infectious Disease recommendations regarding. Patient overall is stable from a pulmonary standpoint. He has no shortness of breath, dyspnea, cough, or chest pain/tightness. Therefore, pulmonary will sign off. If he has any changing symptoms, please call with questions. Data Medications: Current Inpatient Medications Medications (Trade) Dose Ordered Sig/Rebecca Route Start Time Stop Time Status Last Admin Dose Admin Acetaminophen (Tylenol Tab) 650 mg Q4H PRN PO 10/07/17 17:00 11/06/17 16:59 10/10/17 01:46 650 MG Magnesium Hydroxide (Milk Of Magnesia Susp) 30 ml Q12H PRN PO 10/07/17 17:00 11/06/17 16:59 Ondansetron HCl (Zofran Inj) 4 mg Q6H PRN IV 10/07/17 17:00 11/06/17 16:59 Nicotine (Nicoderm Cq 21MG Patch) 1 patch QAM PRN TD 10/07/17 17:00 11/06/17 16:59 10/09/17 10:37 1 PATCH Methimazole (Methimazole Tab) 30 mg DAILY PO 10/08/17 08:00 11/07/17 07:59 10/10/17 09:01 30 MG Vancomycin HCl (Consult) 1 ea UD PRN N/A 10/07/17 20:15 11/06/17 20:14 Ketorolac Tromethamine (Toradol Inj) 30 mg Q6H PRN IV 10/08/17 21:15 10/13/17 21:14 10/10/17 13:25 30 MG Vancomycin HCl 1750 mg/Dextrose 535 ml @ 200 mls/hr Q10H IV 10/09/17 18:00 10/17/17 17:59 10/10/17 03:38 200 MLS/HR Ioversol (Optiray 320) 100 ml UD PRN IV 10/09/17 13:30 10/13/17 13:29 Vital Signs: Date Time Temp Pulse Resp B/P (MAP) Pulse Ox O2 Delivery O2 Flow Rate FiO2 10/10/17 12:07 36.7 73 18 98/56 (70) 97 10/10/17 12:00 96 Room Air 10/10/17 08:00 95 Room Air 10/10/17 07:55 36.6 72 20 106/63 (77) 95 10/10/17 04:05 36.6 66 14 98/61 (73) 96 Room Air 10/10/17 04:00 Room Air 10/10/17 00:01 Room Air 10/09/17 23:27 36.7 72 18 86/46 (59) 97 Room Air 93/48 (63) 10/09/17 20:00 Room Air 10/09/17 19:36 37.2 81 18 100/48 (65) 97 Room Air 10/09/17 16:00 Room Air 10/09/17 15:53 36.8 73 16 107/49 (68) 97 Room Air Laboratory Results: Last 24 Hours Test 10/10/17 06:33 10/10/17 11:02 10/10/17 13:17 Creatinine 0.67 mg/dl Est Creatinine Clear Calc Drug Dose 174.2 ml/min Estimated GFR () > 150.0 Estimated GFR (Non- 129.8
--- NOTE | 2017-10-10 14:28 | Pharmacy Progress Note ---
Pharmacy Abx Dose Short Note Date of Service Oct 10, 2017. Assessment & Plan Assessment * 27 year old male receiving iv VANCOMYCIN for treatment of R elbow and R anterior superior iliac spine abscess, necrotic lung lesion, r/o septic emboli * Day # 4 of antimicrobial therapy * Risk factors for resistant organism: * History of infection with a multidrug-resistant organism: h/o MRSA per provider's note * Antimicrobial use within the last 90 days: recent Bactrim use for R elbow abscess * Blood Cx's from [facility] reported to be growing MRSA per review or nursing notes * Echo report: "No definite vegetations or source of emboli. If the clinical suspicion for endocarditis is high, transesophageal echocardiogram could be considered" Patient to have ALEJANDRA today * ALEJANDRA draft: "No vegetations or evidence of endocarditis on the aortic or mitral valve" * Currently afebrile * Sat well on room air and VSS * Renal fxn appears stable based upon labs and U.O. Plan Vancomycin * Trough level of 18.3 mcg/mL is therapeutic. Level was drawn at the appropriate time and prior doses hung on time. Level was drawn w/ 3rd dose of current regimen * Continue dose of 1750 mg (~23.6mg/kg) IV every 10 hours but recheck level in 24 hrs to confirm that accumulation is not occurring * Goal trough level for bacteremia, necrotic lung mass : 15 to 20 mcg/mL * Trough level ordered for: 10/11/17 - this should be a steady-state level Pharmacy will continue to follow and will adjust dose/frequency as necessary. Thank you.
[2017-10-10 15:45] LABS: BENZODIAZEPINE, URINE POS (NEG); COCAINE,URINE NEG (NEG); PHENCYCLIDINE, URINE NEG (NEG)
--- NOTE | 2017-10-10 19:29 | Progress Note ---
Subjective Date of Service: Oct 10, 2017. Subjective Pt evaluation today including: conversation w/ patient, conversation w/ family (pt's fiance), physical exam, chart review, lab review, review of studies, conversation w/ managing consultant clinical professor (infectious disease ), review of inpatient medication list Pain: mild pelvic pain PO Intake: normal Voiding: no voiding problems tele stable overnight pt feeling well no concerns asks when he can return to work pelvic pain IS improved Review of Systems Constitutional: No fever, No chills Respiratory: No cough, No shortness of breath Cardiac: No chest pain Abdomen: No pain Skin: + problem reported (abscesses) Objective Vital Signs Date Time Temp Pulse Resp B/P (MAP) Pulse Ox O2 Delivery O2 Flow Rate FiO2 10/10/17 16:00 95 Room Air 10/10/17 15:24 36.5 63 21 101/63 (76) 95 10/10/17 12:07 36.7 73 18 98/56 (70) 97 10/10/17 12:00 96 Room Air 10/10/17 08:00 95 Room Air 10/10/17 07:55 36.6 72 20 106/63 (77) 95 10/10/17 04:05 36.6 66 14 98/61 (73) 96 Room Air 10/10/17 04:00 Room Air 10/10/17 00:01 Room Air 10/09/17 23:27 36.7 72 18 86/46 (59) 97 Room Air 93/48 (63) 10/09/17 20:00 Room Air 10/09/17 19:36 37.2 81 18 100/48 (65) 97 Room Air Physical Exam General Appearance: no apparent distress ENT: pharynx normal Neck: no JVD Respiratory/Chest: lungs clear, no respiratory distress, no accessory muscle use Cardiovascular: regular rate, rhythm, no gallop, no murmur Abdomen: normal bowel sounds, non tender, soft, no organomegaly Extremities: no pedal edema Neurologic/Psychiatric: alert, oriented x 3 Skin: + pertinent finding (skin abscess RLQ of abdominal wall - with packing - clean; right forearm abscess - mild purulence present; former abscess site, near the right knee, well-healed) Laboratory Results Last 24 Hours Test 10/10/17 06:33 10/10/17 13:17 10/10/17 15:10 Creatinine 0.67 mg/dl Est Creatinine Clear Calc Drug Dose 174.2 ml/min Estimated GFR () > 150.0 Estimated GFR (Non- 129.8 Vancomycin Level Trough 18.3 mcg/ml Urine Opiates Screen NEG Urine Methadone, Qualitative NEG Urine Barbiturates NEG Urine Phencyclidine (PCP) Level NEG Ur Amphetamine/Methamphetamine NEG MDMA (Ecstasy) Screen NEG Urine Benzodiazepines Screen POS Urine Cocaine Metabolite NEG Urine Marijuana (THC) POS Assessment and Plan 27yo male - 1. MRSA bacteremia/septicemia 2. multiple MRSA abscesses 3. presumed septic emboli to the lung 4. presumed MRSA psoas abscess, left pelvis * repeat blood cultures negative * spoke today with Dr. 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 hyperthyroidism - continue methimazole; needs endo f/u after discharge anticipate d/c home tomorrow if PICC is in place can go to the outpatient infusion center at [facility] on Friday for first daptomycin infusion Continued [facility] stay due to: multiple IV medications needed Discharge planning: home
[2017-10-11 00:01] VITALS: O2SAT 98
[2017-10-11 00:11] VITALS: BP 104/53; PULSE 60; TEMP 36.8; O2SAT 98
[2017-10-11] MEDS: KETOROLAC TROMETHAMINE 30 MG/ML VIAL IV PRN (03:24)
[2017-10-11 04:25] VITALS: BP 109/55; PULSE 70; TEMP 36.9; O2SAT 98
[2017-10-11 06:35] LABS: HEMATOCRIT 33.3 % (42-52); MEAN CELL VOLUME 90.2 fL (80-100); MEAN CORPUSCULAR HEMOGLOBIN 29.5 pg (25-34); MEAN CORPUSCULAR HGB CONC 32.7 g/dl (32-36); MEAN PLATELET VOLUME 8.8 fL (7.4-10.4); PLATELET COUNT 250 K/uL (130-400); RED BLOOD COUNT 3.69 M/uL (4.7-6.1)
[2017-10-11 07:05] LABS: BUN/CREATININE RATIO 18.2 (10-20); CALCIUM 8.1 mg/dl (8.5-10.1); CREATININE 0.79 mg/dl (0.60-1.40); POTASSIUM 4.3 mmol/L (3.5-5.1)
[2017-10-11 07:07] LABS: ALB/GLOB RATIO 0.9 (0.9-2)
[2017-10-11 07:32] VITALS: BP 103/62; PULSE 64; TEMP 36.6; O2SAT 99
[2017-10-11 08:00] VITALS: O2SAT 99
[2017-10-11] MEDS: METHIMAZOLE 5 MG TAB PO SCH (08:46)
[2017-10-11] MEDS ORDERED: DAPTOmycin IV 450 MG in SYRINGE 0 ML IV SCH (09:00)
[2017-10-11] MEDS ORDERED: DAPTOmycin IV 450 MG in SODIUM CHLORIDE 0.9% 50ML 50 ML IV SCH (09:00)
[2017-10-11] MEDS ORDERED: VANCOMYCIN TROUGH ONE (09:30)
[2017-10-11] MEDS ORDERED: LACTCHW3 PO (12:54)
[2017-10-11] MEDS ORDERED: HYDR-5688 PO (12:54)
[2017-10-11] MEDS ORDERED: DAPT500I IV (12:54)
[2017-10-11] MEDS ORDERED: METH10TA6 PO (12:54)
--- NOTE | 2017-10-11 13:14 | Discharge Instructions ---
Discharge Instructions Date of Service Oct 11, 2017. Admission Reason for Admission: MRSA blood stream infection Discharge Discharge Diagnosis / Problem: MRSA infection in the blood; MRSA skin abscesses ; MRSA abscess, L groin Discharge Goals Goal(s): Learn about illness, Diagnostic testing, Therapeutic intervention Activity Recommendations Activity Limitations: as noted below 1. Please stay out of work for at least 1 week. 2. No heavy lifting (nothing over 15 pounds) with the left arm. 3. Keep the PICC line clean & dry at all times. Cover the PICC line with plastic wrap or a plastic bag when showering. Do not take a tub bath. 4. NO DRIVING or operating heavy machinery while you are taking prescription pain medication. . Instructions / Follow-Up Instructions / Follow-Up 1. MRSA infection in the blood, lungs, groin/pelvis, skin - * report to [facility] on 10/12/17, for your first daptomycin infusion via the PICC line * you will continue with daily infusions for 6 weeks * you will need weekly blood work starting on 10/17/17; the blood work can be done via your PICC line 2. MRSA is contagious. Household contacts are particularly at risk. Please practice thorough hand washing several times daily with soap/water, keep draining wounds covered at all times, wash clothing in hot water, etc. 3. For the draining wound in the right groin that is packed - * [facility] will remove the packing tape tomorrow and repack it for you * you will need this done tomorrow and possibly on Friday as well * keep the dressing clean and dry; keep it covered during showers 4. For your hyperthyroidism - Restart your methimazole 30mg once daily. Prescription sent to [facility] in [place]. You will need your thyroid levels checked in 1 week. See your family doctor for this. 5. Please stop smoking if at all possible. 6. NO DRIVING OR OPERATING HEAVY MACHINERY WHILE TAKING PRESCRIPTION PAIN MEDICATION. 7. NO ALCOHOL WHILE ON ANTIBIOTICS OR TAKING PRESCRIPTION PAIN MEDICATION. 8. DO NOT TAKE EXTRA TYLENOL IF YOU ARE USING THE PRESCRIPTION PAIN MEDICATION. 9. Motrin IS OK to use as needed for aches/pains. You can take up to 600mg three times a day as needed for pain. 10. Follow-up appointments - * please see your family doctor within 3-4 days * please see Dr. Kyara Fiore - infectious disease at [facility] - in 10 days * [facility] - daily - starting tomorrow on 10/12/17 for IV antibiotics Current Hospital Diet Patient's current hospital diet: Regular Diet Discharge Diet Recommended Diet: Regular Diet Procedures Procedures Performed: CAT scan of the lungs, abdomen and pelvis showing "nodules" in the lungs suspicious for infection. Pelvic CAT scan showed an abscess in the deep left groin. Echocardiogram did NOT show evidence of infection within the heart. Pending Studies Studies pending at discharge: no Work Instructions Additional Instructions: Keith was hospitalized at [facility] from 10/07/17 to 10/11/17. He may return to work on Friday, October 20. When he returns to work he may not lift heavily with the left arm (that is, no lifting over 15 pounds with the left arm). Medical Emergencies . Who to Call and When: Medical Emergencies: If at any time you feel your situation is an emergency, please call 911 immediately. . Non-Emergent Contact Non-Emergency issues call your: Primary Care Provider Call Non-Emergent contact if: temperature is above 100.5, your pain is not controlled, your pain is worsening, your pain is unusual for you, your pain is concerning you, wound has increased drainage, wound has increased redness, wound has increased pain, you have any medication questions . . "Provider Documentation" section prepared by Bahman Montelongo. . VTE Core Measure Inpt VTE Proph given/why not?: [facility]CD's [place] Drug Monitoring Program Drug Monitoring Findings: I attempted to access the database on 10/11/17 at 1300. Despite several attempts I could not download the website.
[2017-10-11 14:15] VITALS: BP 103/62; PULSE 64; TEMP 36.6; O2SAT 99
[2017-10-13 00:24] LABS: HYDROXYETHYLFLURAZEPAM CONF NEGATIVE NG/ML (CUTOFF=50); HYDROXYMIDAZOLAM 270 NG/ML (CUTOFF=50); HYDROXYTRIAZOLAM CONF NEGATIVE NG/ML (CUTOFF=50); TEMAZEPAM CONF NEGATIVE NG/ML (CUTOFF=50)
[2017-10-13 12:52] LABS: QUANTIF TB AG-NIL <0.00 IU/ML; QUANTIFERON NIL 0.08 IU/ML
== END 2017-10-11 14:29 | disposition home or self-care (01) | DRG 872 ==
LOC: C.4E 15:45 → UNDOADMIN 15:45 → C.4E 15:52 → ENRESERV 20:07 → C.4E 21:00 → C.2E 21:00
PROVIDERS: ADMIT Family Medicine; ATTEND Internal Medicine
PROC: 02HV33Z Insertion of Infusion Device into Superior Vena Cava, Percutaneous Approach (ICD-10-PCS; principal; 2017-10-11)
DX: A41.02 Sepsis due to Methicillin resistant Staphylococcus aureus (principal); L02.415 Cutaneous abscess of right lower limb; L02.413 Cutaneous abscess of right upper limb; I76 Septic arterial embolism; B95.62 Methicillin resistant Staphylococcus aureus infection as the cause of diseases classified elsewhere; E05.00 Thyrotoxicosis with diffuse goiter without thyrotoxic crisis or storm; F17.200 Nicotine dependence, unspecified, uncomplicated

== ENCOUNTER 2017-11-01 12:35 | Inpatient (IN) | payer OTHER ==
[~2017-11-01] VITALS: Ht 180.3 cm; Wt 73.0 kg
[~2017-11-01 12:35] MED LIST: DAPT500I IV; HYDR-5688 PO; LACTCHW3 PO; METH10TA6 PO
[2017-11-01] MEDS ORDERED: ONDANSETRON INJ 2 MG/ML 2 ML VIAL IV STA (13:04)
[2017-11-01] MEDS ORDERED: MoRPHine SULFATE 10 MG/ML CARP/VIAL IV STA (13:04)
[2017-11-01] MEDS ORDERED: METH10TA6 PO (13:24)
[2017-11-01] MEDS ORDERED: DAPT500I IV (13:24)
[2017-11-01 13:49] LABS: BASO % 0.3 %; BASO ABS # 0.05 K/uL (0-0.2); COMPLETE YES; EOS % 7.2 %; HEMATOCRIT 42.1 % (42-52); IG% 0.3 %; LYMPH % 10.9 %; LYMPH ABS # 2.04 K/uL (1.2-3.4); MEAN CELL VOLUME 89.4 fL (80-100); MEAN CORPUSCULAR HEMOGLOBIN 30.6 pg (25-34); MEAN CORPUSCULAR HGB CONC 34.2 g/dl (32-36); MEAN PLATELET VOLUME 9.3 fL (7.4-10.4); MONO % 6.7 %; NEUT % 74.6 %; PLATELET COUNT 293 K/uL (130-400); RED BLOOD COUNT 4.71 M/uL (4.7-6.1)
[2017-11-01] MEDS ORDERED: MoRPHine SULFATE 4 MG/ML 1 ML CARP\\VIAL IV STA (13:54)
--- NOTE | 2017-11-01 13:56 | DIAGNOSTIC IMAGING REPORT ---
CHEST 2 VIEWS ROUTINE HISTORY: 27 years-old Male chest pain/recent septic embolism acute atypical chest pain COMPARISON: Chest CT 10/09/2017 TECHNIQUE: PA and lateral views of the chest FINDINGS: Left-sided PICC is noted with distal tip in the region of the SVC. Cardiomediastinal and hilar silhouettes are within normal limits. There is no pneumothorax or pleural effusion. Hazy subsegmental reticular nodular right basilar opacities are noted. The left lung appears clear. Bones of the chest are grossly intact. Lateral view is mildly suboptimal secondary to arm placement. IMPRESSION: 1. Left-sided PICC terminates within the region of the mid SVC. 2. Hazy subsegmental reticular nodular opacities of the right lung base likely correlate with previously described opacities seen on chest CT. Left lung is generally clear. The above report was generated using voice recognition software. It may contain grammatical, syntax or spelling errors. Electronically signed by: Vega Yusuf M.D. 11/01/2017 1:55 PM Dictated Date/Time: 11/01/2017 1:52 PM
[2017-11-01 13:59] LABS: INR 1.1 (0.9-1.1); PARTIAL THROMBOPLASTIN RATIO 1.2; PROTHROMBIN TIME (PATIENT) 12.3 SECONDS (9.0-12.0)
[2017-11-01 14:02] LABS: CALCIUM 9.2 mg/dl (8.5-10.1); CREATININE 0.99 mg/dl (0.60-1.40); POTASSIUM 3.2 mmol/L (3.5-5.1)
[2017-11-01] MEDS ORDERED: OPTIRAY 320 IV PRN (14:45)
[2017-11-01] MEDS ORDERED: HYDROmorphone INJ 2 MG/ML SYR/VIAL IV STA (14:52)
--- NOTE | 2017-11-01 15:36 | DIAGNOSTIC IMAGING REPORT ---
(CHEST FOR PE) ANGIO WITH CT DOSE: 227.30 mGy.cm HISTORY: 27 years-old Male presents with acute atypical chest pain. TECHNIQUE: Multiple CTA images of the chest were obtained after the intravenous administration of 88 ml Optiray 320. Coronal and sagittal MIPS were obtained from the axial data set and were submitted for review. A dose lowering technique was utilized adhering to the principles of ALARA. COMPARISON: Chest CT 10/09/2017. FINDINGS: CTA: Heart is normal in size without pericardial effusion. Thoracic aorta is normal in both course and caliber without dissection or aneurysm. The pulmonary arterial tree is opacified to the level of the segmental branches and demonstrates no focal filling defects to suggest pulmonary thromboembolic disease. Left-sided PICC terminates within the proximal aspect of the SVC. CT CHEST: No dominant thyroid nodule. Mild residual thymic tissue is noted. Mildly prominent right hilar lymph nodes measuring up to 10 mm in short axis are likely reactive. There is no pneumothorax or large pleural effusion. 7 mm nodule with central lucency involves the superior segment right lower lobe, decreased in size and comparison study. Multilobar bilateral distribution of groundglass centrilobular nodules redemonstrated. 3 mm pleural-based nodule of the right lower lobe seen on image 144 series 4 has decreased in size, previously 7 mm and again demonstrates surrounding groundglass attenuation. Linear subsegmental opacities of the dependent lung bases, right greater than left suggest areas of atelectasis/scarring. Focal consolidative opacity of the basal right lower lobe and lateral segment right middle lobe has slightly increased in size, now measuring 2.8 x 2.0 cm, previously 2.5 x 1.8 cm. This is nicely seen on image 88 series 4. No definite central cavitation identified however there are peripheral air bronchograms. No new pulmonary nodules or opacities identified. Central airways are patent. No acute amount of the imaged upper abdomen. Soft tissues are unremarkable. Bones appear intact. IMPRESSION: 1. No acute aortic pathology or evidence of pulmonary thromboembolic disease. 2. Multifocal multilobar distribution of centrilobular groundglass opacities are again seen bilaterally, greatest at the level of the lung bases. Decreased size of the nodular opacities within the right lower lobe as detailed above, however the focal nodular consolidative opacity of the lateral basal right lower lobe has slightly increased in size. Findings suggest ongoing atypical infectious or inflammatory pneumonitis. Continued follow-up recommended. 3. Mildly prominent right hilar lymph nodes are likely reactive. 4. Left-sided PICC terminates within the proximal SVC. The above report was generated using voice recognition software. It may contain grammatical, syntax or spelling errors. Electronically signed by: Vega Yusuf M.D. 11/01/2017 3:35 PM Dictated Date/Time: 11/01/2017 3:24 PM
[2017-11-01] MEDS ORDERED: VANCOMYCIN 1GM/270ML NSS IV STA (15:50)
[2017-11-01] MEDS ORDERED: LEVAQUIN 750MG / 150ML D5W IV STA (15:50)
[2017-11-01] MEDS ORDERED: KETOROLAC TROMETHAMINE 30 MG/ML VIAL IV STA (15:50)
[2017-11-01] MEDS ORDERED: POLYETHYLENE (MIRALAX) 17 GM PACK PO PRN (16:15)
[2017-11-01] MEDS ORDERED: ALBUTEROL 0.083% NEBU SOLN 3 ML VIAL INH PRN (16:15)
[2017-11-01] MEDS ORDERED: ALUMINUM/MAGNESIUM/SIMETH (MAALOX MAX) 30 ML UDC PO PRN (16:15)
[2017-11-01] MEDS ORDERED: HYDROmorphone INJ 0.5 MG/0.5 ML SYR IV PRN (16:15)
[2017-11-01] MEDS ORDERED: MAGNESIUM HYDROXIDE SUSP 30 ML UDC PO PRN (16:15)
[2017-11-01] MEDS ORDERED: ONDANSETRON INJ 2 MG/ML 2 ML VIAL IV PRN (16:15)
--- NOTE | 2017-11-01 16:50 | History and Physical ---
History & Physical Date & Time of Service: Nov 01, 2017 at 16:39 Chief Complaint: Chest Pain Primary Care Physician: Lul Jaimes M.D. History of Present Illness Source: patient 27 y/o M Hx hyperthyroidism, polysubstance abuse, admitted 10/07 with MRSA skin abscesses and septic emboli in both lungs. He is receiving outpatient Daptomycin and had worsening pleuritic CP in his R lower chest. He denies recurrence of fevers or rigors. A CT chest was obtained in the ER which reveals a worsening RLL consolidation and concern for empyema formation. Past Medical/Surgical History 1) Hyperthyroidism 2) MRSA skin infection and septic emboli in lungs 10/07 3) Polysubstance abuse - Pt denied narcotic use however a UDS documented benzo and THC use. A database search revealed multiple Suboxone prescriptions over the past months, at times sourced from distant clinics. Family History Father with history of CAD/TX Social History Smokes 1 pack daily - possible history of Benzodiazepine abuse - THC (+) UDS on previous admission Smoking Status: Current Every Day Smoker Drug Use: none Allergies Coded Allergies: No Known Allergies (Unverified , 11/01/17) Home Medications Scheduled Daptomycin (Daptomycin), 450 MG IV DAILY Methimazole (Methimazole), 30 MG PO QPM Review of Systems Constitutional: + sweats, No fever, No chills Eyes: No worsening of vision ENT: No hearing loss, No unusual epistaxis, No nasal symptoms Respiratory: + cough, + shortness of breath, No sputum, No wheezing Cardiovascular: + chest pain (Pleuritic - R side) Abdomen: No pain, No nausea, No vomiting Musculoskeletal: No joint pain Genitourinary - Male: No hematuria, No dysuria Neurologic: No memory loss, No paralysis, No weakness Psychiatric: No depression symptoms Endocrine: No fatigue Hematologic / Lymphatic: No abnormal bleeding/bruising Integumentary: No rash Allergic / Immunologic: No environmental allergies Physical Exam Vital Signs Date Time Temp Pulse Resp B/P (MAP) Pulse Ox O2 Delivery O2 Flow Rate FiO2 11/01/17 14:40 78 129/74 97 Room Air 11/01/17 13:15 94 Room Air 11/01/17 12:50 37.1 84 18 148/70 99 Room Air General Appearance: WD/WN, no apparent distress, + pertinent finding (Thin, ill -appearing young male in no distress) Head: normocephalic Eyes: normal inspection ENT: normal ENT inspection, pharynx normal Neck: supple, no JVD Respiratory/Chest: chest non-tender, lungs clear, normal breath sounds Cardiovascular: regular rate, rhythm, no edema, no gallop Abdomen/GI: normal bowel sounds, non tender, soft Back: normal inspection, no CVA tenderness Extremities/Musculoskelatal: normal inspection, no calf tenderness, normal capillary refill, no pedal edema, normal range of motion, + pertinent finding ( PICC L arm) Neurologic/Psych: alarm security or surveillance monitor II-XII nml as tested, no motor/sensory deficits, alert, oriented x 3 Skin: normal color, warm/dry Diagnostics Laboratory Results Results Past 24 Hours Test 11/01/17 13:20 11/01/17 15:57 11/01/17 16:29 Range/Units White Blood Count 18.70 4.8-10.8 K/uL Red Blood Count 4.71 4.7-6.1 M/uL Hemoglobin 14.4 14.0-18.0 g/dL Hematocrit 42.1 42-52 % Mean Corpuscular Volume 89.4 80-100 fL Mean Corpuscular Hemoglobin 30.6 25-34 pg Mean Corpuscular Hemoglobin Concent 34.2 32-36 g/dl Platelet Count 293 130-400 K/uL Mean Platelet Volume 9.3 7.4-10.4 fL Neutrophils (%) (Auto) 74.6 % Lymphocytes (%) (Auto) 10.9 % Monocytes (%) (Auto) 6.7 % Eosinophils (%) (Auto) 7.2 % Basophils (%) (Auto) 0.3 % Neutrophils # (Auto) 13.96 1.4-6.5 K/uL Lymphocytes # (Auto) 2.04 1.2-3.4 K/uL Monocytes # (Auto) 1.26 0.11-0.59 K/uL Eosinophils # (Auto) 1.34 0-0.5 K/uL Basophils # (Auto) 0.05 0-0.2 K/uL RDW Standard Deviation 44.7 36.4-46.3 fL RDW Coefficient of Variation 13.6 11.5-14.5 % Immature Granulocyte % (Auto) 0.3 % Immature Granulocyte # (Auto) 0.05 0.00-0.02 K/uL Prothrombin Time 12.3 9.0-12.0 SECONDS Prothromb Time International Ratio 1.1 0.9-1.1 Activated Partial Thromboplast Time 30.9 21.0-31.0 SECONDS Partial Thromboplastin Ratio 1.2 D-Dimer < 190 0-500 ug/L FEU Sodium Level 135 136-145 mmol/L Potassium Level 3.2 3.5-5.1 mmol/L Chloride Level 100 98-107 mmol/L Carbon Dioxide Level 31 21-32 mmol/L Anion Gap 4.0 3-11 mmol/L Blood Urea Nitrogen 18 7-18 mg/dl Creatinine 0.99 0.60-1.40 mg/dl Est Creatinine Clear Calc Drug Dose 102.5 ml/min Estimated GFR () 118.8 Estimated GFR (Non- 102.5 BUN/Creatinine Ratio 18.0 10-20 Random Glucose 119 70-99 mg/dl Calcium Level 9.2 8.5-10.1 mg/dl Total Creatine Kinase 78 39-308 U/L Microbiology Results 11/01/17 Blood Culture, Ordered Pending 11/01/17 Blood Culture, Ordered Pending Diagnostic Radiology CXR: 1. No acute aortic pathology or evidence of pulmonary thromboembolic disease. 2. Multifocal multilobar distribution of centrilobular groundglass opacities are again seen bilaterally, greatest at the level of the lung bases. Decreased size of the nodular opacities within the right lower lobe as detailed above, however the focal nodular consolidative opacity of the lateral basal right lower lobe has slightly increased in size. Findings suggest ongoing atypical infectious or inflammatory pneumonitis. Continued follow-up recommended. 3. Mildly prominent right hilar lymph nodes are likely reactive. 4. Left-sided PICC terminates within the proximal SVC. Impression Assessment and Plan 27 y/o M Hx hyperthyroidism, admitted 10/07 with MRSA skin abscesses and septic emboli in both lungs. He is receiving outpatient Daptomycin and had worsening pleuritic CP in his R lower chest. He denies recurrence of fevers or rigors. A CT chest was obtained in the ER which reveals a worsening RLL consolidation and concern for empyema formation. 1) Septic emboli - enlarging consolidation in R lung base - Pt placed on Vanc and Levaquin. ID and thoracic surgery consults requested. Pain control and nebs provided as needed. If cultures return + or he develops fevers, an echo may be in order. 2) Hyperthyroidism - cont Methimazole - has outpt f/u appt in coming week. 3) Polysubstance abuse - considering his history and documented Suboxone use, it may be fair to assume IV use at some point. We may expect withdrawal in hospital and will place him on a minimal narcotic dose to avoid complications. Mental health may be needed to obtain Suboxone in hospital. 4) Tobacco abuse - informed that smoking is not helpful currently - provide cessation advice prior to DC although he certainly has more pressing issues to deal with. Full code - Heparin prophylaxis Total time for this admit including review of labs, meds, imaging, records - discussion with pt and ER attending - 36 min Level of Care Med/Surg Resuscitation Status FULL RESUSCITATION VTE Prophylaxis VTE Risk Assessment Done? Y/N: Yes Risk Level: Low Given or contraindicated: Unfractionated heparin SQ
--- NOTE | 2017-11-01 17:02 | EMERGENCY ROOM VISIT NOTE ---
History First contact with patient: 12:55 Chief Complaint: CHEST PAIN Stated Complaint: CHEST PAIN History of Present Illness The patient is a 27 year old male who presents to the Emergency Room with complaints of chest pain which started last night. He states it hurts to take in it breath or move. The patient denies any shortness of breath. The patient denies any fever or any upper respiratory symptoms. The patient was discharged from the hospital on October 11 where he was treated for MRSA for several abscesses on his back and then he had a septic emboli to his lungs. The patient is currently taking all antibiotics as prescribed. He gets IV daptomycin 450 mg daily. He did not go this morning for his IV antibiotics due to his pain.. Review of Systems 10 system review was performed and was negative unless stated otherwise history of present illness. Past Medical/Surgical History Medical Problems: (1) Abscess (2) Chest pain (3) MRSA bacteremia (4) Pneumonia (5) Septic embolism Social History Smoking Status: Current Every Day Smoker Drug Use: none Current/Historical Medications Scheduled Daptomycin (Daptomycin), 450 MG IV DAILY Methimazole (Methimazole), 30 MG PO QPM Physical Exam Vital Signs Date Time Temp Pulse Resp B/P (MAP) Pulse Ox O2 Delivery O2 Flow Rate FiO2 11/01/17 16:57 81 20 125/72 97 Room Air 11/01/17 14:40 78 129/74 97 Room Air 11/01/17 13:15 94 Room Air 11/01/17 12:50 37.1 84 18 148/70 99 Room Air Physical Exam PHYSICAL EXAM: Vital Signs were reviewed: Temperature 37.1, blood pressure 148/ 70, pulse rate 84, respiratory rate 18 Reviewed Nurse's notes and agree. Oxygen saturation is 99 % on room air which is normal . GENERAL: 27-year-old white male appears uncomfortable secondary to chest pain. I. MENTAL STATUS: Alert, oriented, coherent. EARS: Canals clear. TMs good light reflex, no erythema or fluid level noted. NOSE: Nasal mucosa with moderate erythema engorgement. PHARYNX: No erythema, no edema noted. No exudate noted. Airway is adequate. NECK: Supple, non-tender. No lymphadenopathy noted. LUNGS: Minor strains noted secondary to poor inspiratory effort. No audible wheezes rales or rhonchi. CARDIAC: Regular rate and rhythm without murmur. Medical Decision & Procedures ER Provider Diagnostic Interpretation: (CHEST FOR PE) ANGIO WITH CT DOSE: 227.30 mGy.cm HISTORY: 27 years-old Male presents with acute atypical chest pain. TECHNIQUE: Multiple CTA images of the chest were obtained after the intravenous administration of 88 ml Optiray 320. Coronal and sagittal MIPS were obtained from the axial data set and were submitted for review. A dose lowering technique was utilized adhering to the principles of ALARA. COMPARISON: Chest CT 10/09/2017. FINDINGS: CTA: Heart is normal in size without pericardial effusion. Thoracic aorta is normal in both course and caliber without dissection or aneurysm. The pulmonary arterial tree is opacified to the level of the segmental branches and demonstrates no focal filling defects to suggest pulmonary thromboembolic disease. Left-sided PICC terminates within the proximal aspect of the SVC. CT CHEST: No dominant thyroid nodule. Mild residual thymic tissue is noted. Mildly prominent right hilar lymph nodes measuring up to 10 mm in short axis are likely reactive. There is no pneumothorax or large pleural effusion. 7 mm nodule with central lucency involves the superior segment right lower lobe, decreased in size and comparison study. Multilobar bilateral distribution of groundglass centrilobular nodules redemonstrated. 3 mm pleural-based nodule of the right lower lobe seen on image 144 series 4 has decreased in size, previously 7 mm and again demonstrates surrounding groundglass attenuation. Linear subsegmental opacities of the dependent lung bases, right greater than left suggest areas of atelectasis/scarring. Focal consolidative opacity of the basal right lower lobe and lateral segment right middle lobe has slightly increased in size, now measuring 2.8 x 2.0 cm, previously 2.5 x 1.8 cm. This is nicely seen on image 88 series 4. No definite central cavitation identified however there are peripheral air bronchograms. No new pulmonary nodules or opacities identified. Central airways are patent. No acute amount of the imaged upper abdomen. Soft tissues are unremarkable. Bones appear intact. IMPRESSION: 1. No acute aortic pathology or evidence of pulmonary thromboembolic disease. 2. Multifocal multilobar distribution of centrilobular groundglass opacities are again seen bilaterally, greatest at the level of the lung bases. Decreased size of the nodular opacities within the right lower lobe as detailed above, however the focal nodular consolidative opacity of the lateral basal right lower lobe has slightly increased in size. Findings suggest ongoing atypical infectious or inflammatory pneumonitis. Continued follow-up recommended. 3. Mildly prominent right hilar lymph nodes are likely reactive. 4. Left-sided PICC terminates within the proximal SVC. The above report was generated using voice recognition software. It may contain grammatical, syntax or spelling errors. Electronically signed by: Vega Yusuf M.D. 11/01/2017 3:35 PM Dictated Date/Time: 11/01/2017 3:24 PM CHEST 2 VIEWS ROUTINE HISTORY: 27 years-old Male chest pain/recent septic embolism acute atypical chest pain COMPARISON: Chest CT 10/09/2017 TECHNIQUE: PA and lateral views of the chest FINDINGS: Left-sided PICC is noted with distal tip in the region of the SVC. Cardiomediastinal and hilar silhouettes are within normal limits. There is no pneumothorax or pleural effusion. Hazy subsegmental reticular nodular right basilar opacities are noted. The left lung appears clear. Bones of the chest are grossly intact. Lateral view is mildly suboptimal secondary to arm placement. IMPRESSION: 1. Left-sided PICC terminates within the region of the mid SVC. 2. Hazy subsegmental reticular nodular opacities of the right lung base likely correlate with previously described opacities seen on chest CT. Left lung is generally clear. The above report was generated using voice recognition software. It may contain grammatical, syntax or spelling errors. Laboratory Results 11/01/17 13:20 Red Blood Count 4.71, Mean Corpuscular Volume 89.4, Mean Corpuscular Hemoglobin 30.6, Mean Corpuscular Hemoglobin Concent 34.2, Mean Platelet Volume 9.3, Neutrophils (%) (Auto) 74.6, Lymphocytes (%) (Auto) 10.9, Monocytes (%) (Auto) 6.7, Eosinophils (%) (Auto) 7.2, Basophils (%) (Auto) 0.3, Neutrophils # (Auto) 13.96, Lymphocytes # (Auto) 2.04, Monocytes # (Auto) 1.26, Eosinophils # (Auto) 1.34, Basophils # (Auto) 0.05 11/01/17 13:20 Test 11/01/17 13:20 11/01/17 16:29 White Blood Count 18.70 K/uL (4.8-10.8) Red Blood Count 4.71 M/uL (4.7-6.1) Hemoglobin 14.4 g/dL (14.0-18.0) Hematocrit 42.1 % (42-52) Mean Corpuscular Volume 89.4 fL (80-100) Mean Corpuscular Hemoglobin 30.6 pg (25-34) Mean Corpuscular Hemoglobin Concent 34.2 g/dl (32-36) Platelet Count 293 K/uL (130-400) Mean Platelet Volume 9.3 fL (7.4-10.4) Neutrophils (%) (Auto) 74.6 % Lymphocytes (%) (Auto) 10.9 % Monocytes (%) (Auto) 6.7 % Eosinophils (%) (Auto) 7.2 % Basophils (%) (Auto) 0.3 % Neutrophils # (Auto) 13.96 K/uL (1.4-6.5) Lymphocytes # (Auto) 2.04 K/uL (1.2-3.4) Monocytes # (Auto) 1.26 K/uL (0.11-0.59) Eosinophils # (Auto) 1.34 K/uL (0-0.5) Basophils # (Auto) 0.05 K/uL (0-0.2) RDW Standard Deviation 44.7 fL (36.4-46.3) RDW Coefficient of Variation 13.6 % (11.5-14.5) Immature Granulocyte % (Auto) 0.3 % Immature Granulocyte # (Auto) 0.05 K/uL (0.00-0.02) Prothrombin Time 12.3 SECONDS (9.0-12.0) Prothromb Time International Ratio 1.1 (0.9-1.1) Activated Partial Thromboplast Time 30.9 SECONDS (21.0-31.0) Partial Thromboplastin Ratio 1.2 D-Dimer < 190 ug/L FEU (0-500) Anion Gap 4.0 mmol/L (3-11) Est Creatinine Clear Calc Drug Dose 102.5 ml/min Estimated GFR () 118.8 Estimated GFR (Non- 102.5 BUN/Creatinine Ratio 18.0 (10-20) Calcium Level 9.2 mg/dl (8.5-10.1) Total Creatine Kinase 78 U/L (39-308) Medications Administered Medications (Trade) Dose Ordered Sig/Rebecca Route Start Time Stop Time Status Last Admin Dose Admin Morphine Sulfate (MoRPHine SULFATE INJ) 6 mg NOW STAT IV 11/01/17 13:04 11/01/17 13:07 DC 11/01/17 13:26 6 MG Ondansetron HCl (Zofran Inj) 4 mg NOW STAT IV 11/01/17 13:04 11/01/17 13:08 DC 11/01/17 13:25 4 MG Morphine Sulfate (MoRPHine SULFATE INJ) 4 mg NOW STAT IV 11/01/17 13:54 11/01/17 13:55 DC 11/01/17 13:59 4 MG Hydromorphone HCl (Dilaudid Inj) 2 mg NOW STAT IV 11/01/17 14:52 11/01/17 14:53 DC 11/01/17 14:56 2 MG Levofloxacin (Levaquin / D5W) 750 mg NOW STAT IV 11/01/17 15:50 11/01/17 15:52 DC 11/01/17 15:59 750 MG Ketorolac Tromethamine (Toradol Inj) 30 mg NOW STAT IV 11/01/17 15:50 11/01/17 15:52 DC 11/01/17 15:58 30 MG ECG Indication: chest pain Rhythm: normal sinus Findings: no acute ischemic change ED Course The patient was evaluated. The patient's medication list and EMR was reviewed. The patient had blood cultures done which I do not see any evidence of MRSA grout in the blood cultures although that is stated as a diagnosis. He had a septic embolism to the lungs. He also had a tubal skin abscesses on his back which grew out MRSA. The patient currently is on daptomycin 450 mg IV daily for 42 days. He is ALSO on Lactinex 2 tablets twice a day for 30 days and methimazole 30 mg daily for 30 days. The axis was obtained. CBC and differential, renal profile, coags, pointing care d-dimer and CPK was ordered. Chest x-ray was ordered interpreted by the radiologist as above with similar findings compared to CT of 10/09/2017. The patient was given morphine 6 mg IV for pain and Zofran 4 mg IV push for associated nausea. The patient was reevaluated on several occasions and was unable to get his pain under control. He was given additional 4 mg of morphine IV. This did not help his pain and therefore he was given Dilaudid 2 mg IV. The patient's case was discussed with Dr. Montano agreed with treatment plan. The patient's labs are reviewed. The patient's white count was 18,000. Blood cultures were ordered. Lactic acid was ordered. The patient was given vancomycin 1 g IV and Levaquin 750 [facility] Medical Decision Differential diagnosis include empyema, septic embolism, pulmonary embolism, pneumonia, costochondritis, [place] Drug Monitoring Program Search Results: patient reviewed within database Medication Reconcilliation Current Medication List: was personally reviewed by mi Blood Pressure Screening Patient's blood pressure: Normal blood pressure Impression Primary Impression: Empyema lung Additional Impressions: Elevated white blood cell count Non-cardiac chest pain Departure Information Dispostion Being Evaluated By Hospitalist Condition GOOD Referrals Lul Jaimes M.D. (PCP) Patient Instructions My [facility] Problem Qualifiers Additional Impressions: Elevated white blood cell count Leukocytosis type: unspecified Qualified Codes: D72.829 - Elevated white blood cell count, unspecified
[2017-11-01 17:32] VITALS: BP 116/71; PULSE 72; TEMP 36.4; Ht 180.3 cm; Wt 73.0 kg
[2017-11-01] MEDS ORDERED: VANCOMYCIN INJ 1,750 MG in SODIUM CHLORIDE 0.9% 500ML 500 ML IV SCH (18:00)
[2017-11-01] MEDS ORDERED: VANCOMYCIN CONSULT ACTIVE PRN (18:00)
[2017-11-01] MEDS: HEPARIN SOD 5000 UNIT/0.5 ML CARP SQ SCH (18:32)
[2017-11-01] MEDS: MoRPHine SULFATE 2 MG/ML CARP IV PRN (21:14)
[2017-11-01] MEDS: METHIMAZOLE 5 MG TAB PO SCH (21:17)
--- NOTE | 2017-11-01 22:23 | Pharmacy Progress Note ---
Pharmacy Antibiotic Consult Date of Service: Nov 01, 2017. Pharmacy Dosing Scope Pharmacy is consulted to initiate vancomycin IV dosing therapy, order appropriate labs and adjust drug dose/frequency. Subjective The patient is a 27 year old male admitted on Nov 01, 2017 at 16:06. 27 y/o M Hx hyperthyroidism, polysubstance abuse, admitted 10/07 with MRSA skin abscesses and septic emboli in both lungs. He was receiving outpatient Daptomycin and had worsening pleuritic CP in his R lower chest.or rigors. A CT chest was obtained in the ER which reveals a worsening RLL consolidation and concern for empyema formation. Objective Height (Feet): 5 Height (Inches): 11.00 Weight (Kilograms): 73.000 Lab Results (24hrs): Test 11/01/17 13:20 11/01/17 16:29 White Blood Count 18.70 K/uL (4.8-10.8) Red Blood Count 4.71 M/uL (4.7-6.1) Hemoglobin 14.4 g/dL (14.0-18.0) Hematocrit 42.1 % (42-52) Mean Corpuscular Volume 89.4 fL (80-100) Mean Corpuscular Hemoglobin 30.6 pg (25-34) Mean Corpuscular Hemoglobin Concent 34.2 g/dl (32-36) Platelet Count 293 K/uL (130-400) Mean Platelet Volume 9.3 fL (7.4-10.4) Neutrophils (%) (Auto) 74.6 % Lymphocytes (%) (Auto) 10.9 % Monocytes (%) (Auto) 6.7 % Eosinophils (%) (Auto) 7.2 % Basophils (%) (Auto) 0.3 % Neutrophils # (Auto) 13.96 K/uL (1.4-6.5) Lymphocytes # (Auto) 2.04 K/uL (1.2-3.4) Monocytes # (Auto) 1.26 K/uL (0.11-0.59) Eosinophils # (Auto) 1.34 K/uL (0-0.5) Basophils # (Auto) 0.05 K/uL (0-0.2) RDW Standard Deviation 44.7 fL (36.4-46.3) RDW Coefficient of Variation 13.6 % (11.5-14.5) Immature Granulocyte % (Auto) 0.3 % Immature Granulocyte # (Auto) 0.05 K/uL (0.00-0.02) Prothrombin Time 12.3 SECONDS (9.0-12.0) Prothromb Time International Ratio 1.1 (0.9-1.1) Activated Partial Thromboplast Time 30.9 SECONDS (21.0-31.0) Partial Thromboplastin Ratio 1.2 D-Dimer < 190 ug/L FEU (0-500) Sodium Level 135 mmol/L (136-145) Potassium Level 3.2 mmol/L (3.5-5.1) Chloride Level 100 mmol/L (98-107) Carbon Dioxide Level 31 mmol/L (21-32) Anion Gap 4.0 mmol/L (3-11) Blood Urea Nitrogen 18 mg/dl (7-18) Creatinine 0.99 mg/dl (0.60-1.40) Est Creatinine Clear Calc Drug Dose 102.5 ml/min Estimated GFR () 118.8 Estimated GFR (Non- 102.5 BUN/Creatinine Ratio 18.0 (10-20) Random Glucose 119 mg/dl (70-99) Calcium Level 9.2 mg/dl (8.5-10.1) Total Creatine Kinase 78 U/L (39-308) Troponin I < 0.015 ng/ml (0-0.045) Lactic Acid Level 1.3 mmol/L (0.4-2.0) Micro Results: Blood cx are pending Recent Pertinent Medications Levaquin 750mg IV q 24h Assessment & Plan Vancomycin: Pt was on IV vancomycin during last admission (10/07-10/11). Dosing was adjusted per trough levels to final dosing of 1750mg q 10 hrs, so will begin therapy with that dose today. Will monitor carefully and make necessary adjustments. Loading dose: 1750 mg IV X 1 dose (~26.5mg/kg) then: 1750mg IV every 10 hours. Goal trough level estimate: between 17 - 20 mcg/mL for good lung penetration. Peak and trough or random level has been ordered for: 11/02@ 2247. Pharmacy will continue to follow and will adjust dose/frequency as necessary. Thank you
[2017-11-01 22:32] VITALS: BP 122/76; PULSE 99; TEMP 36.7; O2SAT 90
[2017-11-01] MEDS: ZOLPIDEM TARTRATE 5 MG TAB PO PRN (22:37)
[2017-11-01] MEDS: KETOROLAC TROMETHAMINE 30 MG/ML VIAL IV PRN (22:37)
[2017-11-02] MEDS: MoRPHine SULFATE 2 MG/ML CARP IV PRN ×2 (01:05→06:46)
[2017-11-02] MEDS: HEPARIN SOD 5000 UNIT/0.5 ML CARP SQ SCH ×3 (01:12→18:03)
[2017-11-02 02:05] LABS: BENZODIAZEPINE, URINE NEG (NEG); COCAINE,URINE NEG (NEG); PHENCYCLIDINE, URINE NEG (NEG)
[2017-11-02] MEDS: ACETAMINOPHEN 325 MG TAB PO PRN ×2 (03:11→07:58)
[2017-11-02] MEDS: VANCOMYCIN INJ 1,750 MG in SODIUM CHLORIDE 0.9% 500ML 500 ML IV SCH ×2 (04:47→14:24)
[2017-11-02] MEDS: KETOROLAC TROMETHAMINE 30 MG/ML VIAL IV PRN ×3 (04:47→18:03)
[2017-11-02 07:18] VITALS: BP 112/69; PULSE 59; TEMP 36.4; O2SAT 100
[2017-11-02] MEDS: NICOTINE 21 MG/24 HR TDSY TD SCH (07:52)
[2017-11-02 08:30] VITALS: O2SAT 100
[2017-11-02 08:31] LABS: BASO % 0.3 %; BASO ABS # 0.04 K/uL (0-0.2); COMPLETE YES; EOS % 6.1 %; HEMATOCRIT 37.5 % (42-52); IG% 0.3 %; LYMPH % 12.7 %; LYMPH ABS # 1.84 K/uL (1.2-3.4); MEAN CELL VOLUME 89.1 fL (80-100); MEAN CORPUSCULAR HEMOGLOBIN 30.2 pg (25-34); MEAN CORPUSCULAR HGB CONC 33.9 g/dl (32-36); MEAN PLATELET VOLUME 9.2 fL (7.4-10.4); MONO % 8.8 %; NEUT % 71.8 %; PLATELET COUNT 241 K/uL (130-400); RED BLOOD COUNT 4.21 M/uL (4.7-6.1); WHITE BLOOD COUNT 14.49 K/uL (4.8-10.8)
[2017-11-02] MEDS ORDERED: DAPTOmycin 500 MG VIAL IV SCH (09:00)
[2017-11-02 09:15] LABS: C-REACTIVE PROTEIN 10.8 mg/dl (0-0.29); CALCIUM 9.5 mg/dl (8.5-10.1); CREATININE 0.86 mg/dl (0.60-1.40); MAGNESIUM 1.7 mg/dl (1.8-2.4); POTASSIUM 3.9 mmol/L (3.5-5.1)
--- NOTE | 2017-11-02 09:46 | Progress Note ---
Progress Note Date of Service Nov 02, 2017. Progress Note ID Consult Dictated #[id number] A/P: 1. septic emboli - h/o MRSA, previously on dapto 2. polysubstance abuse, denies -Contine abx, follow cultures -would remove picc and culture tip -will follow, thank you
--- NOTE | 2017-11-02 10:52 | INFECT. DISEASE CONSULTATION ---
DATE OF CONSULTATION: 11/02/2017 REQUESTING PHYSICIAN: Dr. Walker. HISTORY OF PRESENT ILLNESS: This is a 27-year-old gentleman who was recently admitted to the hospital as a transfer from [facility] with a septic pulmonary emboli. He did not have positive blood cultures here, but had several skin abscesses which grew community-acquired MRSA. Although, he denied any drug use. He has had a positive UDS in this admission. Unfortunately, UDS was not done at last admission; however, it was noted that he had multiple Suboxone prescriptions filled. He was discharged with daptomycin and he states he has been receiving this at [place]. He has been noncompliant with infectious diseases followup since his last discharge from the hospital. He did present with worsening chest pain and a repeat CAT scan of the chest was done which shows mild enlargement of a right lower lobe septic emboli, now measuring 2.8 x 2.0 cm. This was concerning for empyema. CT surgery consult has been placed. He currently states he has pain with deep inspiration, but otherwise he denies any complaints. He has had no other skin abscesses. He states he is getting daily infusions. There is a PICC line in the left upper extremity. He did have a positive urine drug screen this admission. Repeat blood cultures are pending. He denies any fevers or chills at home. All remaining review of systems is unremarkable. PAST MEDICAL HISTORY: Significant for hyperthyroidism, MRSA skin infections with septic emboli in October and polysubstance abuse. FAMILY HISTORY: Noncontributory. SOCIAL HISTORY: Significant for 1 pack daily of cigarette use. He denies any drug use; however, he has had positive UDS for THC and benzos as well as a history of Suboxone use. ALLERGIES: He has no known drug allergies. CURRENT MEDICATIONS: Include nicotine patch, Levaquin, vancomycin, subQ heparin, Toradol, morphine, Tylenol, Maalox, milk of magnesia, MiraLax, Ambien, Zofran and ventolin. PHYSICAL EXAMINATION: VITAL SIGNS: He is afebrile, pulse 59, respiratory rate 18, blood pressure 112/69, and oxygen saturation 100% on room air. GENERAL: He is awake, alert and oriented x3; he is in no acute distress. He is ambulating in his room on my examination. HEENT: Mucous membranes are moist. Extraocular muscles are intact. HEART: Regular. LUNGS: Clear. ABDOMEN: There is no abdominal distention. His abdomen is nontender. EXTREMITIES: There is no lower extremity edema bilaterally. SKIN: Without rash. LABORATORY STUDIES: CBC today reveals a white blood cell count of 14.4, down from 18.7 yesterday; hemoglobin 12.7, platelets are 241. Sed rate is normal at 10. Chemistry panel reveals a sodium of 133, potassium 3.9, chloride 100, bicarbonate 27, BUN 17, creatinine 0.6, glucose 101. CRP is 10.8. UDS again is positive for opiates and marijuana. Blood cultures are pending. IMAGING: As above. ASSESSMENT AND PLAN: 1. Septic emboli with questionable empyema and history of methicillin-resistant staphylococcus aureus. 2. Polysubstance abuse. At this time, PICC should be removed can be cultured. Blood cultures are pending. CT surgery evaluation is pending. He should remain on vancomycin pending additional culture results. Thank you for this consultation. FRANCA
[2017-11-02] MEDS: MAGNESIUM SULFATE 1GM / D5W 1 GM in PREMIXED IN D5W 100 ML IV SCH ×2 (11:15→12:32)
--- NOTE | 2017-11-02 12:46 | SURGICAL CONSULTATION ---
DATE OF CONSULTATION: 11/02/2017 REASON FOR CONSULTATION: Septic emboli. HISTORY OF PRESENT ILLNESS: This is a 27-year-old male who has a history of polysubstance abuse. About a month ago, he was transferred up from [facility] with concerns for septic emboli. He also had some skin lesions that grew up MRSA, but these have healed. He has had what appeared to be right-sided septic emboli. He had multiple, although the largest one was in the superior aspect of his right lower lobe and this appears to have gotten a bit larger. He also has some lymphadenopathy, which has been in the right hilar area as expected. The patient is a smoker. He has about 55-[id number] history, starting about 10 years ago at 1 pack per day. He has not lost any weight. He presented with increasing pain on his right side, was admitted and it was seen on a CT scan done yesterday that this right lower lobe consolidation has gotten larger and probably involves the pleura. I was asked to comment on this from a surgical standpoint. PAST MEDICAL HISTORY: 1. Graves' disease. 2. History of cigarette smoking (1 pack per day for 10 years). 3. Broken wrist. PAST SURGICAL HISTORY: 1. Open reduction and internal fixation of right wrist. 2. Apparent septoplasty. 3. Lasik surgery for vision. MEDICATIONS (at home): 1. Daptomycin 450 mg IV daily. 2. Methimazole 30 mg p.o. daily. ALLERGIES: No known drug allergies. SOCIAL HISTORY: The patient lives with his girlfriend and their 2 children. He has a 1-year-old and 4-year-old daughter. He smokes a pack of cigarettes a day. He works as a mechanical maintenance technician. He is independent with activities of daily living. FAMILY MEDICAL HISTORY: His father is in his mid 50s and has had coronary artery disease. He was a prior smoker. He has had percutaneous transluminal angioplasty and stents. The patient's 2 daughters are healthy, although the 4-year-old was diagnosed having Lyme's disease, several months ago was treated. He has a brother who is healthy except he is a smoker. Mother is 48 and healthy. REVIEW OF SYSTEMS: The patient states his weight has been stable. He denies any dyspnea on exertion. He really has not had any productive cough. He just had more pain in his right side. Really, he has not had any fevers. He has had some sweats. He denies chills. He has had no recent auditory or visual symptoms. He has pleuritic pain, which he feels is causing his perceived shortness of breath. The pleuritic pain is on the right side of his chest as stated, but does not have any other chest pain or heaviness. He has no palpitations. He denies any GI or complaints. He has had no skin breakdown. The 3 separate small skin abscesses he had have all healed and resurfaced. He denies any joint effusions. No peripheral edema. Neurologically, he is completely intact with no asterixis. PHYSICAL EXAMINATION: GENERAL: This is a thin male who stands 5 feet 11 inches tall and weighs 161 pounds. HEENT: His extraocular movements are intact. His pupils are equal, round, and reactive. His sclerae are anicteric. His oral mucosa is moist. His teeth are in good repair. He has no supraclavicular, cervical or axillary adenopathy. He has got overall mildly decreased breath sounds, but no wheezing or rales today. I do not hear a rub on the right. He had no carotid bruits. I really cannot palpate any thyromegaly. ABDOMEN: Soft, nontender. He has had a left-sided PICC line in place. EXTREMITIES: He has no peripheral edema. He has no joint effusions. He has good peripheral pulses. NEUROLOGICAL: He is completely intact. ASSESSMENT AND PLAN: Worsening of right lower lobe mass. My recommendations at this point would be to reconsult pulmonary. At this point, I do not see an indication for any intervention from a surgical standpoint; however, should he worsen or not clear, a case could be made for a wedge resection for infection control, but this is very rarely done.
[2017-11-02] MEDS: LIDODERM (LIDOCAINE) PATCH 5% TD SCH (14:47)
[2017-11-02 15:37] VITALS: BP 99/60; PULSE 63; TEMP 36.8; O2SAT 99
[2017-11-02] MEDS: BUPRENORPHINE/NALOXONE 8/2 MG TAB PO SCH (16:04)
[2017-11-02] MEDS: LEVOFLOXACIN / D5W 750 MG in PREMIXED IN D5W 150 ML IV SCH (16:16)
[2017-11-02] MEDS: METHIMAZOLE 5 MG TAB PO SCH (21:42)
[2017-11-02] MEDS ORDERED: VANCOMYCIN TROUGH ONE (23:30)
[2017-11-03] MEDS: VANCOMYCIN INJ 1,750 MG in SODIUM CHLORIDE 0.9% 500ML 500 ML IV SCH ×3 (00:09→20:26)
--- NOTE | 2017-11-03 00:31 | Pharmacy Progress Note ---
Pharmacy Abx Dose Short Note Date of Service Nov 03, 2017. Assessment & Plan Assessment 27 year old male receiving vancomycin for treatment of septic emboli in lungs Day # 3 of antimicrobial therapy. Plan Vancomycin * Trough level of 15.8 mcg/mL is therapeutic. * Continue dose of 1750 mg IV every 10 hours * Goal trough level for septic emboli : 15 to 20 mcg/mL * Trough ordered for: 11/05/17 prior to 6 am dose Pharmacy will continue to follow and will adjust dose/frequency as necessary. Thank you.
[2017-11-03] MEDS: ZOLPIDEM TARTRATE 5 MG TAB PO PRN ×2 (00:58→23:42)
[2017-11-03] MEDS: KETOROLAC TROMETHAMINE 30 MG/ML VIAL IV PRN ×4 (00:59→23:43)
[2017-11-03 01:12] VITALS: BP 95/49; PULSE 78; TEMP 36.5; O2SAT 98
--- NOTE | 2017-11-03 05:40 | Progress Note ---
Subjective Date of Service: late entry for visit Nov 02, 2017. Subjective Pt evaluation today including: conversation w/ patient, physical exam, chart review, lab review, review of studies (CT chest, EKG, etc), review of inpatient medication list Pain: right chest - pleuritic, and positional in nature as well (any movement) PO Intake: normal Voiding: no voiding problems I brought to the attention of the patient today that we had ascertained that he had been taking (or at least prescribed) suboxone. When I asked him why he hadn't told any provider either here or at [facility] in [place] he said "when I was there [[facility]] things went so fast I just forgot." I asked him further about the details about why he was on such. He admitted to taking percocet for a long time following a broken left wrist that required ORIF. He then needed 2-3 additional surgeries for the left wrist. He wanted to "get off the percocet" and thus landed in the suboxone clinic. The clinic is in [place] and he takes 8mg a day. Prescription database on-line shows he has received 3 separate prescriptions, each for 15 tabs of suboxone, since early October. I asked him directly if he had ever crushed the percocet or suboxone and injected it - he consistently stated NO. When I asked him why his tox screen from the last admission showed benzodiazepines he stated "I don't know." He alluded to a tox screen done at pain management showing benzos as well and "they quested that too." He reports his girlfriend is aware of the suboxone. Problem List Medical Problems: (1) Elevated white blood cell count Status: Acute (2) Empyema lung Status: Acute (3) Non-cardiac chest pain Status: Acute Review of Systems Constitutional: No fever, No chills Respiratory: No cough, No shortness of breath Cardiac: + chest pain (pleuritic, right-sided) Abdomen: No pain Objective Vital Signs Date Time Temp Pulse Resp B/P (MAP) Pulse Ox O2 Delivery O2 Flow Rate FiO2 11/03/17 01:12 36.5 78 16 95/49 (64) 98 Room Air 11/03/17 00:30 Room Air 11/02/17 16:00 Room Air 11/02/17 15:37 36.8 63 18 99/60 (73) 99 Room Air 11/02/17 08:30 100 Room Air 11/02/17 07:18 36.4 59 18 112/69 (83) 100 Room Air Physical Exam General Appearance: + mild distress (when his right chest hurts), + thin ENT: pharynx normal Neck: no JVD Respiratory/Chest: lungs clear, no respiratory distress, no accessory muscle use, + pertinent finding (reproducible chest wall tenderness, right anterior lower chest) Cardiovascular: regular rate, rhythm, no gallop, no murmur Abdomen: normal bowel sounds, non tender, soft, no organomegaly Extremities: no pedal edema Neurologic/Psychiatric: alert, oriented x 3 Skin: + pertinent finding (previous skin abscess sites - RLQ of abdominal wall , right arm, and right leg - all resolved; no new lesions seen ) Laboratory Results Last 24 Hours Test 11/02/17 08:17 11/02/17 23:14 11/03/17 05:25 White Blood Count 14.49 K/uL Red Blood Count 4.21 M/uL Hemoglobin 12.7 g/dL Hematocrit 37.5 % Mean Corpuscular Volume 89.1 fL Mean Corpuscular Hemoglobin 30.2 pg Mean Corpuscular Hemoglobin Concent 33.9 g/dl Platelet Count 241 K/uL Mean Platelet Volume 9.2 fL Neutrophils (%) (Auto) 71.8 % Lymphocytes (%) (Auto) 12.7 % Monocytes (%) (Auto) 8.8 % Eosinophils (%) (Auto) 6.1 % Basophils (%) (Auto) 0.3 % Neutrophils # (Auto) 10.42 K/uL Lymphocytes # (Auto) 1.84 K/uL Monocytes # (Auto) 1.27 K/uL Eosinophils # (Auto) 0.88 K/uL Basophils # (Auto) 0.04 K/uL RDW Standard Deviation 45.0 fL RDW Coefficient of Variation 13.7 % Immature Granulocyte % (Auto) 0.3 % Immature Granulocyte # (Auto) 0.04 K/uL Erythrocyte Sedimentation Rate 10 mm/hr Sodium Level 133 mmol/L Potassium Level 3.9 mmol/L Chloride Level 100 mmol/L Carbon Dioxide Level 27 mmol/L Anion Gap 7.0 mmol/L Blood Urea Nitrogen 17 mg/dl Creatinine 0.86 mg/dl Est Creatinine Clear Calc Drug Dose 130.9 ml/min Estimated GFR () 135.8 Estimated GFR (Non- 117.2 BUN/Creatinine Ratio 20.0 Random Glucose 101 mg/dl Calcium Level 9.5 mg/dl Magnesium Level 1.7 mg/dl C-Reactive Protein 10.80 mg/dl Vancomycin Level Trough 15.8 mcg/ml Assessment and Plan 27yo male - 1. pleuritic chest pain, right chest - I believe some of his pain is from infiltrative disease from MRSA seen on chest CT, and he also seems to have a musculoskeletal component as well. I do not believe he has pericarditis. No evidence of PE on CTA. In actuality the CT chest has less septic emboli burden. Sed rate is normal. CRP mildly elevated. Appreciate ID and thoracic surgery consults. Will resume his suboxone. Limit other narcotics. Toradol. K-pad. Lidoderm patches. 2. MRSA bacteremia/septicemia with septic emboli - s/p PICC line with daily IV daptomycin use since last admission. Agree with Dr. Fiore to d/c the PICC in light of concern of illicit drug use and ongoing infectious issues. 3. polysubstance abuse - check HepB, HepC in am. HIV last admission was negative. Also check LFTs. 4. hyperthyroidism - methimazole; check TSH am. 5. hypomagnesemia - replace IV, repeat mag in am. 6. hyponatremia - hydrate, repeat BMP am. 7. hepatomegaly on previous imaging - check Hep titers. 8. DVT proph - heparin TID. Continued [facility] stay due to: inadequate oral pain control, multiple IV medications needed Discharge planning: home
[2017-11-03] MEDS: HEPARIN SOD 5000 UNIT/0.5 ML CARP SQ SCH ×3 (05:45→17:39)
[2017-11-03 06:27] LABS: BUN/CREATININE RATIO 17.8 (10-20); CALCIUM 8.2 mg/dl (8.5-10.1); CREATININE 0.85 mg/dl (0.60-1.40); MAGNESIUM 2.1 mg/dl (1.8-2.4); POTASSIUM 3.6 mmol/L (3.5-5.1)
[2017-11-03 06:40] LABS: THYROID STIMULATING HORMONE 1.93 uIu/ml (0.300-4.500)
[2017-11-03 07:11] VITALS: BP 121/74; PULSE 78; TEMP 37; O2SAT 98
[2017-11-03] MEDS: NICOTINE 21 MG/24 HR TDSY TD SCH (07:52)
[2017-11-03] MEDS: LIDODERM (LIDOCAINE) PATCH 5% TD SCH (07:52)
[2017-11-03 08:30] VITALS: O2SAT 98
[2017-11-03] MEDS: BUPRENORPHINE/NALOXONE 8/2 MG TAB PO SCH (08:41)
[2017-11-03 09:06] LABS: HEPATITIS B AB POS
--- NOTE | 2017-11-03 11:00 | Progress Note ---
Subjective Date of Service: Nov 03, 2017. Subjective Pt evaluation today including: conversation w/ patient, conversation w/ family , physical exam, chart review, lab review pt seen in followup, states no plans for OR. still with right sided chest pain, tolerating abx, cultures negative, afebrile. states pain was acute in onset while getting into car. now complaining of back pain as well, improves with ambualtion. all remaining ros reviewed and are negative. Problem List Medical Problems: (1) Elevated white blood cell count Status: Acute (2) Empyema lung Status: Acute (3) Non-cardiac chest pain Status: Acute Objective Vital Signs Date Time Temp Pulse Resp B/P (MAP) Pulse Ox O2 Delivery O2 Flow Rate FiO2 11/03/17 08:30 98 Room Air 11/03/17 07:11 37.0 78 18 121/74 (90) 98 11/03/17 01:12 36.5 78 16 95/49 (64) 98 Room Air 11/03/17 00:30 Room Air 11/02/17 16:00 Room Air 11/02/17 15:37 36.8 63 18 99/60 (73) 99 Room Air Physical Exam General Appearance: WD/WN, no apparent distress Eyes: EOMI Neck: supple Respiratory/Chest: lungs clear, normal breath sounds, no respiratory distress Cardiovascular: regular rate, rhythm, no edema Abdomen: non tender, soft Extremities: non-tender, no pedal edema Neurologic/Psychiatric: alert, oriented x 3 Skin: normal color, no rash Laboratory Results Item Value Date Time Blood Culture - Preliminary Resulted 11/01/17 1629 Blood NO GROWTH TO DATE. Blood Culture - Preliminary Resulted 11/01/17 1620 Blood NO GROWTH TO DATE. Last 24 Hours Test 11/02/17 23:14 11/03/17 05:39 11/03/17 05:40 Vancomycin Level Trough 15.8 mcg/ml Hepatitis B Surface Antigen NEG Hepatitis B Surface Antibody POS Hepatitis C Antibody NEG Sodium Level 135 mmol/L Potassium Level 3.6 mmol/L Chloride Level 103 mmol/L Carbon Dioxide Level 29 mmol/L Anion Gap 3.0 mmol/L Blood Urea Nitrogen 15 mg/dl Creatinine 0.85 mg/dl Est Creatinine Clear Calc Drug Dose 132.4 ml/min Estimated GFR () 136.5 Estimated GFR (Non- 117.7 BUN/Creatinine Ratio 17.8 Random Glucose 92 mg/dl Calcium Level 8.2 mg/dl Magnesium Level 2.1 mg/dl Total Bilirubin 0.4 mg/dl Aspartate Amino Transf (AST/SGOT) 24 U/L Alanine Aminotransferase (ALT/SGPT) 31 U/L Alkaline Phosphatase 103 U/L Total Protein 6.1 gm/dl Albumin 3.0 gm/dl Globulin 3.1 gm/dl Albumin/Globulin Ratio 1.0 Thyroid Stimulating Hormone (TSH) 1.930 uIu/ml Assessment and Plan (1) Septic embolism Assessment & Plan: continue abx for now, would remove picc line. if back pain persists would suggest mri. Continued [facility] stay due to: inadequate oral pain control, multiple IV medications needed Discharge planning: home
[2017-11-03 15:37] VITALS: O2SAT 98
[2017-11-03 16:12] VITALS: BP 100/59; PULSE 90; TEMP 37.1; O2SAT 97
[2017-11-03] MEDS: LEVOFLOXACIN / D5W 750 MG in PREMIXED IN D5W 150 ML IV SCH (16:27)
--- NOTE | 2017-11-03 16:50 | SURGERY PROGRESS NOTE ---
DATE: 11/03/2017 SUBJECTIVE: Mr. Rosa was seen today with his family. He is feeling better. His PICC line is to be removed and he was started on p.o. antibiotics. Infectious disease is handling this. From my standpoint, I will refer him back to pulmonology and 2 infectious disease and would be glad to see him any time should the need arise. At this point, the chance of us having to resect or intervene is quite low.
--- NOTE | 2017-11-03 17:00 | Pulmonary Consultation ---
History General Date of Service: Nov 03, 2017. Stated Complaint: Chest Pain, Pneumonia HPI Patient is a 27 yo male presenting to the hospital acutely with worsening right- sided chest pain. The patient was recently admitted to [facility] from [facility] on 10/07/17 for concerns of septic emboli. The patient had multiple MRSA skin lesions at that time. His blood cultures during admission were negative. He ultimately was discharged home with IV Daptomycin via PICC line for concern of possible MRSA bacteremia and septic emboli. The patient ultimately had been doing well at home until be began to have right-sided chest pain again at home prior to current admission. The patient states that he began to have increasing chest pain on the right side of his chest which was notably worse with inspiration BANQUET CAPTAIN. He did not have any further chest pain at home between his last admission and current admission otherwise. He denies fever, sweats, chills, night sweats, weight loss, hemoptysis, cough, sputum production, SOB or chest tightness. He is a smoker. He states that his skin lesions have healed well. He also has been experiencing some slight back pain, too. Labs since admission were reviewed: WBC 18.70 --> 14.49 Neutrophils 13.96 --> 10.42 CRP 10.80 ESR 10 Blood cultures showing NGTD. I did discuss this patient with Dr. Jean and Dr. Cuevas as well. The images were reviewed with Dr. Cuevas. CTA Chest 11/01/17: Multifocal multilobar distribution of centrilobular ground glass opacities seen bilaterally, greatest at lung bases. Decreased size of nodular opacities in the RLL. Increase in size of RLL consolidative opacity. Mildly prominent right hilar lymph nodes These images were viewed by me and compared to prior exams. CT Chest 10/09/17: Focal 2.5 cm nodular opacity within the base of the RLL with central necrosis. A number of subcentimeter nodular densities withing the right lung and subtle tree-in-bud opacity throughout the lungs. Mild mediastinal and right hilar lymphadenopathy also noted. Echo 10/08/17: Normal LV function Thickening of the mitral valve, but no definite vegetation ALEJANDRA 10/09/17: No vegetations or evidence of endocarditis. Historian: patient Onset: just prior to arrival Review of Systems Constitutional: denies: chills, fever, weakness Eyes: denies: eye pain ENT: denies: ear pain Cardiovascular: reports: chest pain, denies: chest tightness, edema Respiratory: denies: cough, orthopnea, shortness of breath, wheezing, sputum production, hemoptysis Gastrointestinal: denies: nausea, vomiting Genitourinary - Male: denies: dysuria Musculoskeletal: reports: back pain Integumentary: denies: rash Neurologic: denies: dizziness All Other Symptoms All Other Systems: Reviewed and Negative Past Medical History Past Medical History: Medical Problems: (1) Abscess (2) Chest pain (3) MRSA bacteremia (4) Pneumonia (5) Septic embolism Social History Hx Tobacco Use In Past Year?: Yes Smoking Status: Current Every Day Smoker Allergies Coded Allergies: No Known Allergies (Unverified , 11/01/17) Current Medications Reported Home Medications Medications Dose Route/Sig Max Daily Dose Days Date Category Daptomycin 500 Mg Inj 450 Mg IV DAILY 11/01/17 Reported Methimazole 10 Mg Tab 30 Mg PO QPM 11/01/17 Reported Physical Physical Exam Vital Signs: Date Time Temp Pulse Resp B/P (MAP) Pulse Ox O2 Delivery O2 Flow Rate FiO2 11/03/17 16:12 37.1 90 16 100/59 (73) 97 11/03/17 15:37 98 Room Air 11/03/17 08:30 98 Room Air 11/03/17 07:11 37.0 78 18 121/74 (90) 98 11/03/17 01:12 36.5 78 16 95/49 (64) 98 Room Air 11/03/17 00:30 Room Air VS reviewed: Afebrile HR 90 RR 16 BP 100/59 SaO2 97% on room air General: Patient is awake, alert, cooperative, and in no acute distress. Well developed. Well-nourished. Head: Normocephalic, Atraumatic. ENT: PERRLA, No discharge, EOMI, Sclera normal Neck: Normal ROM. Trachea midline. No stridor Respiratory: No adventitious sounds heard on exam. Normal breath sounds. No respiratory distress. No accessory muscle use. Cardiovascular: Regular rate and rhythm. No murmur appreciate. Normal S1/S2. Abdomen: Nontender to palpation. Normal bowel sounds hear throughout. No guarding. Abdomen is soft and nontender Back: Normal inspection. Extremities: No edema, cyanosis. Normal ROM Neuro: Alert, Oriented x 3. CN II-XII grossly intact. Sensation and motor function grossly intact. Psych: Mood and affect are normal. Diagnostics Labs Results Past 24 Hours Test 11/02/17 23:14 11/03/17 05:39 11/03/17 05:40 Range/Units Vancomycin Level Trough 15.8 SEE COMMENT mcg/ml Hepatitis B Surface Antigen NEG NEG Hepatitis B Surface Antibody POS Hepatitis C Antibody NEG NEG Sodium Level 135 136-145 mmol/L Potassium Level 3.6 3.5-5.1 mmol/L Chloride Level 103 98-107 mmol/L Carbon Dioxide Level 29 21-32 mmol/L Anion Gap 3.0 3-11 mmol/L Blood Urea Nitrogen 15 7-18 mg/dl Creatinine 0.85 0.60-1.40 mg/dl Est Creatinine Clear Calc Drug Dose 132.4 ml/min Estimated GFR () 136.5 Estimated GFR (Non- 117.7 BUN/Creatinine Ratio 17.8 10-20 Random Glucose 92 70-99 mg/dl Calcium Level 8.2 8.5-10.1 mg/dl Magnesium Level 2.1 1.8-2.4 mg/dl Total Bilirubin 0.4 0.2-1 mg/dl Aspartate Amino Transf (AST/SGOT) 24 15-37 U/L Alanine Aminotransferase (ALT/SGPT) 31 12-78 U/L Alkaline Phosphatase 103 45-117 U/L Total Protein 6.1 6.4-8.2 gm/dl Albumin 3.0 3.4-5.0 gm/dl Globulin 3.1 2.5-4.0 gm/dl Albumin/Globulin Ratio 1.0 0.9-2 Thyroid Stimulating Hormone (TSH) 1.930 0.300-4.500 uIu/ml Diagnostic Radiology Noted in HPI Impression Assessment and Plan Septic Pulmonary Emboli MRSA infection Probable Pleuritic Chest Pain Patient is currently on IV Vancomycin and Levaquin. Blood cultures showing NGTD. He previously was on IV Daptomycin. I did discuss this patient with Dr. Jean and Dr. Cuevas. It seems most likely that the focus in his lower lung continues to be opacity/consolidation associated with possible septic emboli. The majority of his lungs otherwise appear improved. He continues to have probable reactive lymphadenopathy. Because the patient is improving, recommend continued medical management at this time. It is recommended that the patient continue on antibiotic with good lung penetration such as Vancomycin or Zyvox. ID is following, so will allow final abx decision to them. Recommend that he does continue abx for at least 2- 3 more weeks pending follow up CT scan. He will need repeat CT scan of the chest prior to discontinuation. It seems that this patient's pain is likely pleuritic in nature, therefore Toradol will likely help his pain the most while inpatient. Recommend continued pain control with Ibuprofen and antiinflammatories after discharge. If the patient has worsening symptoms or his consolidative change does not resolve, he may need further evaluation in the future with transthoracic needle aspiration/biopsy. Otherwise, no change in current intervention from a pulmonary standpoint. He will need follow up in 2 weeks as an outpatient with [facility]. Thank you for the consult.
[2017-11-03] MEDS: METHIMAZOLE 5 MG TAB PO SCH (20:23)
--- NOTE | 2017-11-03 21:25 | Progress Note ---
Subjective Date of Service: Nov 03, 2017. Subjective Pt evaluation today including: conversation w/ patient, conversation w/ family (fiance/girlfriend), physical exam, chart review, lab review, conversation w/ fitness sales consultant (infectious disease ), review of inpatient medication list Pain: right chest - but improved, and responds to toradol PO Intake: normal Voiding: no voiding problems no issues overnight "I'm gradually feeling better" (with respect to right sided chest wall pain) he mentions some back pain today favoring the right side of his back but NO spinous process/midline pain no fevers or chills Problem List Medical Problems: (1) Elevated white blood cell count Status: Acute (2) Empyema lung Status: Acute (3) Non-cardiac chest pain Status: Acute Review of Systems Constitutional: No fever, No chills Respiratory: No shortness of breath, No dyspnea on exertion Cardiac: + see HPI, + chest pain Abdomen: No pain, No diarrhea Objective Vital Signs Date Time Temp Pulse Resp B/P (MAP) Pulse Ox O2 Delivery O2 Flow Rate FiO2 11/03/17 16:12 37.1 90 16 100/59 (73) 97 11/03/17 15:37 98 Room Air 11/03/17 08:30 98 Room Air 11/03/17 07:11 37.0 78 18 121/74 (90) 98 11/03/17 01:12 36.5 78 16 95/49 (64) 98 Room Air 11/03/17 00:30 Room Air Physical Exam General Appearance: no apparent distress, + thin ENT: pharynx normal Neck: no JVD Respiratory/Chest: lungs clear, no respiratory distress, no accessory muscle use, + decreased breath sounds (right base), + pertinent finding (tender to palpation over the right lower anterior chest) Cardiovascular: regular rate, rhythm, no gallop, no murmur Abdomen: normal bowel sounds, non tender, soft, no organomegaly Extremities: no pedal edema Neurologic/Psychiatric: no motor/sensory deficits, alert, oriented x 3 Skin: no rash, + pertinent finding (PICC line, left arm - clean ) Comments: back - nontender to palpation along the t-spine and l-spine Laboratory Results Last 24 Hours Test 11/02/17 23:14 11/03/17 05:39 11/03/17 05:40 Vancomycin Level Trough 15.8 mcg/ml Hepatitis B Surface Antigen NEG Hepatitis B Surface Antibody POS Hepatitis C Antibody NEG Sodium Level 135 mmol/L Potassium Level 3.6 mmol/L Chloride Level 103 mmol/L Carbon Dioxide Level 29 mmol/L Anion Gap 3.0 mmol/L Blood Urea Nitrogen 15 mg/dl Creatinine 0.85 mg/dl Est Creatinine Clear Calc Drug Dose 132.4 ml/min Estimated GFR () 136.5 Estimated GFR (Non- 117.7 BUN/Creatinine Ratio 17.8 Random Glucose 92 mg/dl Calcium Level 8.2 mg/dl Magnesium Level 2.1 mg/dl Total Bilirubin 0.4 mg/dl Aspartate Amino Transf (AST/SGOT) 24 U/L Alanine Aminotransferase (ALT/SGPT) 31 U/L Alkaline Phosphatase 103 U/L Total Protein 6.1 gm/dl Albumin 3.0 gm/dl Globulin 3.1 gm/dl Albumin/Globulin Ratio 1.0 Thyroid Stimulating Hormone (TSH) 1.930 uIu/ml Assessment and Plan 27yo male - 1. pleuritic chest pain, right chest - I believe some of his pain is from infiltrative disease from MRSA seen on chest CT along with musculoskeletal component as well. I do not believe he has pericarditis. No evidence of PE on CTA. Appreciate ID and thoracic surgery consults. Cont suboxone. Limit other narcotics. Toradol q6h prn - this has been quite helpful to him. K-pad. Lidoderm patches. IV abx. 2. MRSA bacteremia/septicemia with septic emboli - s/p PICC line with daily IV daptomycin use since last admission. Agree with Dr. Fiore to d/c the PICC in light of concern of illicit drug use and ongoing infectious issues. Will culture the tip of PICC once d/c. Continue IV vanco & IV levaquin; defer ultimate abx selection to ID. 3. polysubstance abuse - HepBSag negative; HepC negative. HIV last admission was negative. LFTs stable. HepB surface Ab + is likely due to past immunization. 4. hyperthyroidism - methimazole; TSH is well wnl. 5. hypomagnesemia - replaced & resolved. 6. hyponatremia - resolved. 7. hepatomegaly on previous imaging - see above. Liver feels normal on exam & LFTs are stable. 8. DVT proph - heparin TID. Continued [facility] stay due to: multiple IV medications needed Discharge planning: home
[2017-11-04] VITALS: BP 107/62; PULSE 80; TEMP 36.8; O2SAT 98
[2017-11-04] MEDS: HEPARIN SOD 5000 UNIT/0.5 ML CARP SQ SCH ×2 (01:55→09:33)
[2017-11-04] MEDS: VANCOMYCIN INJ 1,750 MG in SODIUM CHLORIDE 0.9% 500ML 500 ML IV SCH (05:08)
[2017-11-04 08:03] VITALS: BP 103/65; PULSE 103; TEMP 36.9; O2SAT 98
[2017-11-04] MEDS: KETOROLAC TROMETHAMINE 30 MG/ML VIAL IV PRN (09:32)
[2017-11-04] MEDS: BUPRENORPHINE/NALOXONE 8/2 MG TAB PO SCH (09:32)
[2017-11-04] MEDS: LIDODERM (LIDOCAINE) PATCH 5% TD SCH (09:32)
[2017-11-04] MEDS: NICOTINE 21 MG/24 HR TDSY TD SCH (09:33)
--- NOTE | 2017-11-04 11:39 | Pulmonology Progress Note ---
Pulmonary Progress Note Date of Service Nov 04, 2017. Attending Dr. Cuevas Subjective Patient is feeling about the same today. He continues to have right-sided chest pain with inspiration. He feel that it has not improved much, but is better with Toradol. It is no longer persistent, but is on and off throughout the day. He has been afebrile. His vital signs were reviewed and stable. No new labs/ imaging. ID following. CT surgery following. I did discuss this patient with Dr. Jean and Dr. Cruz Objective General: Patient is awake, alert, cooperative, and in no acute distress. Well developed. Well-nourished. Head: Normocephalic, Atraumatic. ENT: PERRLA, No discharge, EOMI, Sclera normal Neck: Normal ROM. Trachea midline. No stridor Respiratory: Decreased breath sounds right base. No respiratory distress. No accessory muscle use. Cardiovascular: Regular rate and rhythm. No murmur appreciate. Normal S1/S2. Abdomen: Nontender to palpation. Normal bowel sounds hear throughout. No guarding. Abdomen is soft and nontender Back: Normal inspection. Extremities: Normal ROM Neuro: Alert, Oriented x 3. CN II-XII grossly intact. Sensation and motor function grossly intact. Psych: Mood and affect are normal. Assessment & Plan Septic Pulmonary Emboli MRSA infection Probable Pleuritic Chest Pain Patient is currently on IV Vancomycin and Levaquin. Blood cultures showing NGTD. He previously was on IV Daptomycin. It seems most likely that the focus in his lower lung continues to be opacity/consolidation associated with possible septic emboli. The majority of his lungs otherwise appear improved. He continues to have probable reactive lymphadenopathy. The patient does continue to have pain especially with inspiration. He is currently being medically managed. I feel that this patient may benefit from further evaluation with needle aspiration of the pleural based-lesion. Could potentially do FNA by CT guidance with where this is located. CT surgery did evaluate this patient and ID is on board. Will allow final decision on management to primary team, ID and CT surgery. At the least, this patient needs close follow up with repeat CT in 2 weeks. If this lesion persists or if his symptoms worsen, he likely will need more aggressive intervention/resection of the area. It is also recommended that the patient continue on antibiotic with good lung penetration for possible intraparenchymal infection. ID is following, so will allow final abx decision to them. It seems that this patient's pain is likely pleuritic in nature, therefore Toradol will likely help his pain the most while inpatient. Recommend continued pain control with Ibuprofen and antiinflammatories after discharge. He will need follow up in 2 weeks as an outpatient with [facility]. Data Medications: Current Inpatient Medications Medications (Trade) Dose Ordered Sig/Rebecca Route Start Time Stop Time Status Last Admin Dose Admin Ioversol (Optiray 320) 100 ml UD PRN IV 11/01/17 14:45 11/05/17 14:44 Methimazole (Methimazole Tab) 30 mg QPM PO 11/01/17 21:00 12/01/17 20:59 11/03/17 20:23 30 MG Heparin Sodium (Porcine) (Heparin Sq 5000 Unit/0.5ml) 5,000 unit Q8H SQ 11/01/17 18:00 12/01/17 17:59 11/03/17 10:31 5,000 UNIT Acetaminophen (Tylenol Tab) 650 mg Q4H PRN PO 11/01/17 16:15 12/01/17 16:14 11/02/17 07:58 650 MG Al Hydrox/Mg Hydrox/Simethicone (Maalox Max Susp) 15 ml Q4H PRN PO 11/01/17 16:15 12/01/17 16:14 Magnesium Hydroxide (Milk Of Magnesia Susp) 30 ml Q6H PRN PO 11/01/17 16:15 12/01/17 16:14 Polyethylene (Miralax Powder Packet) 17 gm DAILY PRN PO 11/01/17 16:15 12/01/17 16:14 Zolpidem Tartrate (Ambien Tab) 5 mg HSZ PRN PO 11/01/17 16:15 12/01/17 16:14 11/03/17 23:42 5 MG Ondansetron HCl (Zofran Inj) 4 mg Q6H PRN IV 11/01/17 16:15 12/01/17 16:14 11/01/17 22:38 4 MG Levofloxacin 750 mg/Prmx 150 ml @ 100 mls/hr Q24H IV 11/02/17 16:00 11/08/17 15:59 11/03/17 16:27 100 MLS/HR Albuterol Sulfate (Ventolin 0.083% 2.5MG/3ML Neb) 2.5 mg Q6R PRN INH 11/01/17 16:15 12/01/17 16:14 Vancomycin HCl 1750 mg/Sodium Chloride 535 ml @ 200 mls/hr Q10H IV 11/02/17 04:00 11/08/17 17:59 11/04/17 05:08 200 MLS/HR Vancomycin HCl (Consult) 1 ea UD PRN N/A 11/01/17 18:00 12/01/17 17:59 Morphine Sulfate (MoRPHine SULFATE INJ) 2 mg Q4H PRN IV 11/01/17 20:15 11/15/17 20:14 11/02/17 06:46 2 MG Nicotine (Nicoderm Cq 21MG Patch) 1 patch QAM TD 11/02/17 08:00 12/02/17 07:59 11/04/17 09:33 1 PATCH Miscellaneous (Remove Nicoderm Patch) 1 ea HS N/A 11/02/17 21:00 12/02/17 20:59 11/03/17 20:21 1 EA Ketorolac Tromethamine (Toradol Inj) 30 mg Q6H PRN IV 11/01/17 21:30 11/06/17 21:29 11/04/17 09:32 30 MG Heparin Sodium (Porcine) (Heparin 10 Unit/ ml 5 ml Flush) 5 ml PRN PRN FLUSH 11/02/17 00:30 12/02/17 00:29 11/02/17 09:02 5 ML Buprenorphine/ Naloxone (Suboxone 8/2MG Tab) 1 tab DAILY PO 11/02/17 15:30 12/02/17 15:29 11/04/17 09:32 1 TAB Lidocaine (Lidoderm Patch 5%) 2 patch QAM TD 11/02/17 14:30 12/02/17 14:29 11/04/17 09:32 2 PATCH Miscellaneous (Remove Lidoderm Patch) 1 ea HS N/A 11/02/17 21:00 12/02/17 20:59 11/03/17 20:21 1 EA Vital Signs: Date Time Temp Pulse Resp B/P (MAP) Pulse Ox O2 Delivery O2 Flow Rate FiO2 11/04/17 09:51 Room Air 11/04/17 08:03 36.9 103 20 103/65 (78) 98 Room Air 11/04/17 00:00 Room Air 11/04/17 00:00 36.8 80 18 107/62 (77) 98 Room Air 11/03/17 20:30 Room Air 11/03/17 16:12 37.1 90 16 100/59 (73) 97 11/03/17 15:37 98 Room Air
--- NOTE | 2017-11-04 11:57 | Pharmacy Progress Note ---
Automatic IV to PO Conversion Date of Service: Nov 04, 2017. [facility] has identified patient as an appropriate candidate for automatic intravenous to oral conversion. Eligible medication: LVQ IV every 24 hours. Day # 4 of IV therapy. Subjective The patient is a 27 year old male admitted on Nov 01, 2017 at 16:06 for Chest Pain, Pneumonia. Objective Vital Signs: Vital Signs Past 12 Hours Date Time Temp Pulse Resp B/P (MAP) Pulse Ox O2 Delivery O2 Flow Rate FiO2 11/04/17 09:51 Room Air 11/04/17 08:03 36.9 103 20 103/65 (78) 98 Room Air 11/04/17 00:00 Room Air 11/04/17 00:00 36.8 80 18 107/62 (77) 98 Room Air Height (Feet): 5 Height (Inches): 11.00 Weight (Kilograms): 73.000 Type of Diet: Regular Microbiology Date/Time Source Procedure Growth Status 11/03/17 20:10 Catheter Tip Picc Line Catheter Tip Culture Pending Received Assessment & Plan The Infectious Disease Society and the [place] [employer] recommend conversion to oral therapy once a patient is determined to be clinically stable and are able to tolerate oral medications. Patient identified as appropriate candidate for IV to PO conversion of LVQ 750mg daily based on the following criteria: * Afebrile for greater than or equal to 12 hours * Receiving oral/enteral medications and tolerating oral/enteral diet for greater than 24 hours * Improvement in clinical condition evidenced by .. WBC count of 14.49 10^3/uL and trending downward, resolution of signs/symptoms of illness * Hemodynamically stable Automatic conversion to: LVQ PO every 24 hours
[2017-11-04] MEDS ORDERED: LEVOFLOXACIN 750 MG TAB PO SCH (12:00)
--- NOTE | 2017-11-04 14:57 | Progress Note ---
Subjective Date of Service: Nov 04, 2017. Subjective Pt evaluation today including: conversation w/ patient, conversation w/ family , physical exam, chart review, lab review pt seen in followup, feeling much better. no back pain. improved chest pain. spoke with pulm and primary, no plans for surgery. picc removed yesterday. tolerating abx. blood cultures negative, no cough, no sob, denies f/c. all remaining ros reviewed and are negative, picc tip culture negative to d ate. Problem List Medical Problems: (1) Elevated white blood cell count Status: Acute (2) Empyema lung Status: Acute (3) Non-cardiac chest pain Status: Acute Objective Vital Signs Date Time Temp Pulse Resp B/P (MAP) Pulse Ox O2 Delivery O2 Flow Rate FiO2 11/04/17 09:51 Room Air 11/04/17 08:03 36.9 103 20 103/65 (78) 98 Room Air 11/04/17 00:00 Room Air 11/04/17 00:00 36.8 80 18 107/62 (77) 98 Room Air 11/03/17 20:30 Room Air 11/03/17 16:12 37.1 90 16 100/59 (73) 97 11/03/17 15:37 98 Room Air Physical Exam General Appearance: WD/WN, no apparent distress Eyes: normal inspection Neck: supple Respiratory/Chest: lungs clear, normal breath sounds, no respiratory distress Cardiovascular: regular rate, rhythm, no edema Abdomen: non tender, soft Extremities: non-tender, no pedal edema Neurologic/Psychiatric: alert, oriented x 3 Skin: normal color, no rash Laboratory Results Item Value Date Time Catheter Tip Culture - Preliminary Resulted 11/03/172009 Catheter Tip Picc Line NO GROWTH TO DATE. Blood Culture - Preliminary Resulted 11/01/17 1629 Blood NO GROWTH TO DATE. Blood Culture - Preliminary Resulted 11/01/17 1620 Blood NO GROWTH TO DATE. Assessment and Plan (1) Septic embolism Assessment & Plan: will change to po doxy, no picc due to h/o opiate use. will follow in office post d/c. pt to follow with pulm as well and have repeat ct chest. ok for d/c from ID standpoint. Continued [facility] stay due to: multiple IV medications needed Discharge planning: home
[2017-11-04] MEDS ORDERED: DXY100 PO (15:03)
--- NOTE | 2017-11-04 15:06 | Discharge Instructions ---
Discharge Instructions Date of Service Nov 04, 2017. Admission Reason for Admission: Chest Pain, Pneumonia Discharge Discharge Diagnosis / Problem: chest pain, pneumonia Discharge Goals Goal(s): Diagnostic testing, Therapeutic intervention Activity Recommendations Activity Limitations: as noted below Lifting Limitations: gradually increase as tolerated . Instructions / Follow-Up Instructions / Follow-Up please follow up with Dr Alexandra, and she will be also scheduling a follow up CT. Please use non prescription meds for your pain such as tylenol and ibuprofen and aleve Current Hospital Diet Patient's current hospital diet: Regular Diet Discharge Diet Recommended Diet: Regular Diet Pending Studies Studies pending at discharge: no Medical Emergencies . Who to Call and When: Medical Emergencies: If at any time you feel your situation is an emergency, please call 911 immediately. . Non-Emergent Contact Non-Emergency issues call your: Primary Care Provider, Specialist (Dr ALEXANDRA ) Call Non-Emergent contact if: temperature is above 101, your pain is unusual for you . . "Provider Documentation" section prepared by Jitendra Galarza. . VTE Core Measure Inpt VTE Proph given/why not?: Unfractionated heparin SQ
[2017-11-04 15:11] VITALS: BP 103/65; PULSE 103; TEMP 36.9; O2SAT 98
[2017-11-04 15:31] VITALS: BP 138/62
--- NOTE | 2017-11-04 15:51 | SURGERY PROGRESS NOTE ---
DATE: 11/04/2017 SUBJECTIVE: Mr. Rosa was seen today with his significant other. He feels better and would like to go home. I discussed his case with Dr. Cuevas. There was a concern about the mass in the superior segment of the right lower lobe. It did not appear to have responded, although I think the antibiotics therapy should be given for a longer period of time. He may well need a thoracoscopic or robotic wedge resection of this mass. At this point, I would allow him to be discharged and I will see him back in the office next week when he comes back to [place] to see the infectious disease. We will get a CT scan without contrast on the morning of our visit next week.
--- NOTE | 2017-11-04 17:51 | Discharge Summary ---
Discharge Summary Date of Service Nov 04, 2017. Discharge Summary Admission Date: Nov 01, 2017 at 16:06 Discharge Date: Nov 04, 2017 Discharge Disposition: Home Principal Diagnosis: chest pain due to resolving pneumonia, from MRSA bactremia Medication Reconciliation New Medications: Doxycycline Hyclate (Doxycycline Hyclate) 100 Mg Cap 100 MG PO BID, #42 CAP Continued Medications: Methimazole (Methimazole) 10 Mg Tab 30 MG PO QPM Discontinued Medications: Daptomycin (Daptomycin) 500 Mg Inj 450 MG IV DAILY Discharge Exam Review of Systems: Constitutional: + weakness, + fatigue, No fever, No chills Respiratory: No cough, No sputum, No shortness of breath Cardiovascular: No chest pain, No orthopnea Abdomen: No pain, No nausea, No vomiting, No diarrhea Musculoskeletal: + joint pain, + muscle pain, No swelling Genitourinary - Male: No hematuria, No dysuria Neurologic: + weakness, No memory loss, No paralysis Psychiatric: + depression symptoms, No anhedonism Physical Exam: General Appearance: + mild distress, + thin Eyes: PERRL, EOMI Respiratory/Chest: chest non-tender, lungs clear, normal breath sounds Cardiovascular: regular rate, rhythm, no murmur Abdomen / GI: normal bowel sounds, non tender, soft Extremities: no pedal edema, normal range of motion Neurologic/Psychiatric: alert, oriented x 3 Hospital Course 27yo male -with previous MRSA bacteremia, returns with chest pain pleuritic chest pain, right chest - from infiltrative disease from MRSA seen on chest CT along with musculoskeletal component as well. no previously history pericarditis, did have ALEJANDRA last hospital stay. No evidence of PE on CTA. ID and thoracic surgery consults have seen, no plans for surgical intervention , ID recommends doxycycline Substance abuse, prevniously was geting suboxone from a clinic. Limit other narcotics.recommend trying tylenol and ibuprofen in replacement of opiates HepBSag negative; HepC negative. HepB surface Ab + is likely due to past immunization. HIV last admission was negative. MRSA bacteremia/septicemia with septic emboli - s/p PICC line with daily IV daptomycin use since last admission. Dr. Fiore recommended to d/c the PICC in light of concern of illicit drug use, has recommended po S/p culture the tip of PICC IV vanco & IV levaquin; defer ultimate abx selection to ID. hyperthyroidism - methimazole; TSH is well wnl. hypomagnesemia, hyponatremia - resolved. hepatomegaly on previous imaging - normal exam & LFTs are stable. Total Time Spent: Greater than 30 minutes This includes examination of the patient, discharge planning, medication reconciliation, and communication with other providers. Discharge Instructions Please refer to the electronic Patient Visit Report (Discharge Instructions) for additional information.
[2017-11-04] MEDS ORDERED: DOXYCYCLINE HYCLATE 100 MG CAP PO SCH (20:00)
[2017-11-05] MEDS ORDERED: VANCOMYCIN TROUGH ONE ×3 (05:30→11:30)
[2017-11-05 13:51] LABS: COD UR NEGATIVE NG/ML (CUTOFF=50); HYDROCOD UR NEGATIVE NG/ML (CUTOFF=50); HYDROMOR UR 1800 NG/ML (CUTOFF=50); MORPHINE UR 7770 NG/ML (CUTOFF=50); NORHYDROCODONE CONF UR NEGATIVE NG/ML (CUTOFF=50); OXYMORPH UR NEGATIVE NG/ML (CUTOFF=50)
== END 2017-11-04 15:45 | disposition home or self-care (01) | DRG 871 ==
LOC: C.EDB 12:37 → C.4E 16:06 → ENRESERV 16:42
PROVIDERS: ADMIT Internal Medicine; ATTEND Internal Medicine
DX: A41.02 Sepsis due to Methicillin resistant Staphylococcus aureus (principal); J15.212 Pneumonia due to Methicillin resistant Staphylococcus aureus; I26.90 Septic pulmonary embolism without acute cor pulmonale; F11.20 Opioid dependence, uncomplicated; Z86.14 Personal history of Methicillin resistant Staphylococcus aureus infection; Z86.718 Personal history of other venous thrombosis and embolism; F17.200 Nicotine dependence, unspecified, uncomplicated; E05.90 Thyrotoxicosis, unspecified without thyrotoxic crisis or storm; F19.10 Other psychoactive substance abuse, uncomplicated; Z82.49 Family history of ischemic heart disease and other diseases of the circulatory system; E83.42 Hypomagnesemia